=== PATIENT | male | born 1965 | race American Indian/Alaskan Native ===

== ENCOUNTER 2019-04-29 08:33 | Observation (INO) | payer SELFPAY ==
[2019-04-29] MEDS ORDERED: MORPHINE 4 MG/1 ML INJ IV ONE ×2 (09:56→12:46)
[2019-04-29] MEDS ORDERED: ONDANSETRON 4 MG/2 ML INJ IV ONE (09:56)
--- NOTE | 2019-04-29 09:59 | Emergency Department Report ---
ED Abdominal Pain HPI - General Chief Complaint: Abdominal Pain Stated Complaint: STOMACH PAIN Time Seen by Provider: 04/29/19 09:53 Source: patient Mode of arrival: Ambulatory Limitations: No Limitations - History of Present Illness Initial Comments: Patient is 53 years old male with no significant past medical history except for a hernia repair a few years back. Patient presented to the ER complaining of diffuse abdominal pain, sharp in nature with no radiation. Patient is nauseated but no vomiting. No diarrhea. No fever or chills. Normal bowel movement yesterday. Patient stated that he drink alcohol daily. Patient denied any hematemesis, hematochezia or melena. MD Complaint: abdominal pain -: days(s) (3) Location: diffuse Radiation: none Migration to: no migration Severity: severe Severity scale (0 -10): 7 Quality: sharp Consistency: constant - Related Data Allergies Allergy/AdvReac Type Severity Reaction Status Date / Time No Known Allergies Allergy Unverified 04/29/19 08:38 ED Review of Systems ROS: Stated complaint: STOMACH PAIN Other details as noted in HPI Comment: All other systems reviewed and negative Constitutional: denies: chills, fever Respiratory: denies: cough, shortness of breath, SOB with exertion, SOB at rest, wheezing Cardiovascular: denies: chest pain, palpitations Gastrointestinal: abdominal pain. denies: nausea, vomiting, diarrhea Musculoskeletal: denies: back pain Neurological: denies: headache, weakness, numbness, paresthesias, confusion ED Past Medical Hx - Past Medical History Previous Medical History?: No - Surgical History Past Surgical History?: No ED Physical Exam - General Limitations: No Limitations General appearance: alert, in no apparent distress - Head Head exam: Present: atraumatic, normocephalic, normal inspection - Eye Eye exam: Present: normal appearance - ENT ENT exam: Present: normal exam, normal orophraynx, mucous membranes moist - Neck Neck exam: Present: normal inspection, full ROM. Absent: tenderness, meningismus - Respiratory Respiratory exam: Present: normal lung sounds bilaterally - Cardiovascular Cardiovascular Exam: Present: regular rate, normal rhythm, normal heart sounds - GI/Abdominal GI/Abdominal exam: Present: soft, tenderness. Absent: distended, guarding, rebound, rigid, organomegaly, mass, bruit, pulsatile mass, hernia - Extremities Exam Extremities exam: Present: normal inspection, full ROM, normal capillary refill - Back Exam Back exam: Present: normal inspection, full ROM. Absent: tenderness, CVA tende rness (R), CVA tenderness (L), muscle spasm, paraspinal tenderness, vertebral tenderness - Neurological Exam Neurological exam: Present: alert, oriented X3, CN II-XII intact, normal gait, reflexes normal. Absent: motor sensory deficit - Skin Skin exam: Present: warm, intact, normal color ED Course Vital Signs 04/29/19 04/29/19 04/29/19 08:39 10:36 11:31 Temperature 98.1 F Pulse Rate 84 81 Respiratory 16 15 16 Rate Blood Pressure 142/82 Blood Pressure 119/77 [Left] O2 Sat by Pulse 99 98 Oximetry 04/29/19 12:46 Temperature Pulse Rate Respiratory 16 Rate Blood Pressure Blood Pressure [Left] O2 Sat by Pulse Oximetry ED Medical Decision Making - Lab Data Result diagrams: 04/29/19 10:14 04/29/19 10:14 - Radiology Data Radiology results: report reviewed - Medical Decision Making Patient is 53 years old male with no significant past medical history except for a hernia repair a few years back. Patient presented to the ER complaining of diffuse abdominal pain, sharp in nature with no radiation. Patient is nauseated but no vomiting. No diarrhea. No fever or chills. Normal bowel movement yesterday. Patient stated that he drink alcohol daily. Patient denied any hematemesis, hematochezia or melena. Patient received morphine twice and Dilaudid for pain control. Patient still complaining of pain. No vomiting observing the ER. Labs reviewed and showed e levated lipase level and also elevated liver enzymes. CT abdomen and pelvis with IV contrast showed evidence of pancreatitis and possibility of pancreatic mass. I discussed the patient with Gwen, nurse practitioner with Dr. Jasiel Hawkins from gastroenterology, agreed to be consulted on the patient. I discussed the patient with Dr. Benitez, he agreed to admit the patient to medical service for further management. Critical care attestation.: If time is entered above; I have spent that time in minutes in the direct care of this critically ill patient, excluding procedure time. ED Disposition Clinical Impression: Intractable epigastric abdominal pain, Acute pancreatitis, Pancreatic mass Disposition: OP ADMIT IP TO THIS HOSP Is pt being admited?: Yes Condition: Stable
[2019-04-29 10:42] LABS: Basophils % (Auto) 0.5 % (0.0-1.8); Eosinophils % (Auto) 0.7 % (0.0-4.3); Hematocrit 38.8 % (35.5-45.6); Hemoglobin 13.3 gm/dl (11.8-15.2); Lymphocytes % (Auto) 21.1 % (13.4-35.0); Mean Corpuscular HGB Conc 34 % (32-34); Mean Corpuscular Volume 106 fl (84-94); Monocytes # (Auto) 0.5 K/mm3 (0.0-0.8); Monocytes % (Auto) 11.1 % (0.0-7.3); Platelet Count 127 K/mm3 (140-440); Red Blood Count 3.66 M/mm3 (3.65-5.03); Red Cell Distribution Width 13.3 % (13.2-15.2)
[2019-04-29 11:15] LABS: Alanine Aminotransferase 165 units/L (7-56); Albumin 3.9 g/dL (3.9-5); BUN/Creatinine Ratio 8; Blood Urea Nitrogen 5 mg/dL (9-20); Calcium 9.2 mg/dL (8.4-10.2); Hemolysis Index 11
[2019-04-29 12:05] LABS: Bacteria,Urine 1+ /HPF (Negative); Bilirubin,Urine NEG (Negative); Blood,Urine SM (Negative); Color,Urine Amber (Yellow); Mucus,Urine 2+ /HPF
[2019-04-29] MEDS ORDERED: MORPHINE 2 MG/1 ML INJ ONE (12:49)
--- NOTE | 2019-04-29 14:46 | Cat Scan Report ---
CT abdomen pelvis w con INDICATION: abdominal pain. TECHNIQUE: All CT scans at this location are performed using the following dose modulation technique: Automated exposure control. CONTRAST: Omnipaque 350, 100 cc IV injection. COMPARISON: None available. CT ABDOMEN: Evaluation of the parenchymal organs demonstrates fatty infiltration the liver. There is dilatation of the pancreatic duct originating at the pancreatic head which measures 2.4 x 3.1 cm. Thi s is similar in density to adjacent pancreatic tissue. The remaining parenchymal organs are unremarka ble. Fluid/inflammation is seen in the region the pancreatic head and extending along the right retroperit oneum, gallbladder and undersurface of the liver. Negative for localized fluid collection. There is mild colonic distention which contains semisolid stool. Negative for wall thickening. CT PELVIS: Negative for mass, fluid collection or inflammation. IMPRESSION: 1. Right upper quadrant inflammatory process is likely on the basis of the pancreatitis. 2. Focal chronic pancreatitis versus mass at the pancreatic head with resultant ductal dilatation yoko suring 7 mm and partial pancreatic atrophy. 3. Large fatty liver. Signer Name: Michele Wu MD Signed: 04/29/2019 2:42 PM Workstation Name: [id number]
[2019-04-29] MEDS ORDERED: SODIUM CHLORIDE 0.9% 1000 ML 1,000 ML IV ONE (15:33)
[2019-04-29] MEDS ORDERED: HYDROmorphone 1 MG/1 ML INJ IV ONE (15:33)
[2019-04-29] MEDS ORDERED: HYDROmorphone 1 MG/1 ML INJ IV PRN (15:38)
[2019-04-29] MEDS ORDERED: ACETAMINOPHEN 325 MG TAB PO PRN (15:38)
[2019-04-29] MEDS ORDERED: ONDANSETRON 4 MG/2 ML INJ IV PRN (15:38)
[2019-04-29] MEDS ORDERED: ALBUTEROL 2.5 MG/3 ML NEBU IH PRN (15:38)
--- NOTE | 2019-04-29 15:41 | Gastroenterology Consultation ---
History of Present Illness - Reason for Consult Consult date: 04/29/19 pancreatic mass Requesting physician: VALERIA STEWART - History of Present Illness Patient is a 53 y/o male with PMH of ETOH abuse who presented to ED with c/o diffuse abdominal pain. Upon admission, lipase/LFTs was found to be elevated with abd CT revealing fatty liver, pancreatitis, and possible focal area of chronic pancreatitis vs mass at the pancreatic head to which GI has been consulted. This afternoon patient was resting on stretcher w/o acute distress. Noted to be agitated requesting something to eat and difficult to answer questions. Report a hx of pancreatitis ~ 5 years ago due to alcohol, which he continues to actively drink (on average 4 beers daily). Had N/V a couple of days ago that has now resolved. Denies fever, CP, SOB, signs of bleeding, jaundice, diarrhea, or constipation. No hx of cirrhosis. No known Fhx of pancreatic disease. Past History Past Medical History: other (alcohol dependency) Past Surgical History: hernia repair Social history: , alcohol abuse Medications and Allergies Allergies Allergy/AdvReac Type Severity Reaction Status Date / Time No Known Allergies Allergy Unverified 04/29/19 08:38 Active Meds: Active Medications Acetaminophen (Tylenol) 650 mg PO Q4H PRN PRN Reason: Pain MILD(1-3)/Fever >100.5/GUTIERREZ Albuterol (Proventil) 2.5 mg IH Q4HRT PRN PRN Reason: Shortness Of Breath Hydromorphone HCl (Dilaudid) 0.5 mg IV Q3H PRN PRN Reason: Pain , Severe (7-10) Sodium Chloride (Nacl 0.9% 1000 Ml) 1,000 mls @ 250 mls/hr IV ONCE ONE Stop: 04/29/19 19:32 Sodium Chloride (Nacl 0.9% 1000 Ml) 1,000 mls @ 125 mls/hr IV DIRECT IRLANDA Ondansetron HCl (Zofran) 4 mg IV Q8H PRN PRN Reason: Nausea And Vomiting Sodium Chloride (Sodium Chloride Flush Syringe 10 Ml) 10 ml IV BID IRLANDA Sodium Chloride (Sodium Chloride Flush Syringe 10 Ml) 10 ml IV PRN PRN PRN Reason: LINE FLUSH medications reviewed/updated as required Review of Systems - Review of Systems All systems: negative Gastrointestinal: abdominal pain Exam - Constitutional Vital Signs: Temp Pulse Resp BP Pulse Ox 98.1 F 81 16 119/77 98 04/29/19 08:39 04/29/19 11:31 04/29/19 12:46 04/29/19 11:31 04/29/19 11:31 General appearance: no acute distress - EENT Eyes: PERRL, EOM intact ENT: hearing intact - Respiratory Respiratory effort: normal Respiratory: bilateral: CTA - Cardiovascular Rhythm: regular - Gastrointestinal General gastrointestinal: Present: soft, tender (diffuse), non-distended, normal bowel sounds - Integumentary Integumentary: Present: warm, dry - Neurologic Neurological: alert and oriented x3 - Labs CBC & Chem 7: 04/29/19 10:14 04/29/19 10:14 Lab Results: Laboratory Results - last 24 hr 04/29/19 04/29/19 04/29/19 10:14 10:14 10:14 WBC 4.8 RBC 3.66 Hgb 13.3 Hct 38.8 MCV 106 H MCH 36 H MCHC 34 RDW 13.3 Plt Count 127 L Lymph % (Auto) 21.1 [place] % (Auto) 11.1 H Eos % (Auto) 0.7 Baso % (Auto) 0.5 Lymph # 1.0 L [place] # 0.5 Eos # 0.0 Baso # 0.0 Seg Neutrophils % 66.6 Seg Neutrophils # 3.2 Sodium 132 L Potassium 5.0 Chloride 93.3 L Carbon Dioxide 24 Anion Gap 20 BUN 5 L Creatinine 0.6 L Estimated GFR > 60 BUN/Creatinine Ratio 8 Glucose 129 H Calcium 9.2 Total Bilirubin 0.50 AST 201 H ALT 165 H Alkaline Phosphatase 98 Total Protein 7.3 Albumin 3.9 Albumin/Globulin Ratio 1.1 Lipase 480 H Urine Color Urine Turbidity Urine pH Ur Specific [place] Urine Protein Urine Glucose (UA) Urine Ketones Urine Blood Urine Nitrite Urine Bilirubin Urine Urobilinogen Ur Leukocyte Esterase Urine WBC (Auto) Urine RBC (Auto) U Epithel Cells (Auto) Urine Bacteria (Auto) Urine Mucus Plasma/Serum Alcohol 04/29/19 04/29/19 11:29 11:31 WBC RBC Hgb Hct MCV MCH MCHC RDW Plt Count Lymph % (Auto) [place] % (Auto) Eos % (Auto) Baso % (Auto) Lymph # [place] # Eos # Baso # Seg Neutrophils % Seg Neutrophils # Sodium Potassium Chloride Carbon Dioxide Anion Gap BUN Creatinine Estimated GFR BUN/Creatinine Ratio Glucose Calcium Total Bilirubin AST ALT Alkaline Phosphatase Total Protein Albumin Albumin/Globulin Ratio Lipase Urine Color Citlaly Urine Turbidity Clear Urine pH 5.0 Ur Specific [place] 1.023 Urine Protein 30 mg/dl Urine Glucose (UA) Neg Urine Ketones Neg Urine Blood Sm Urine Nitrite Neg Urine Bilirubin Neg Urine Urobilinogen 2.0 Ur Leukocyte Esterase Neg Urine WBC (Auto) 5.0 Urine RBC (Auto) 4.0 U Epithel Cells (Auto) 4.0 Urine Bacteria (Auto) 1+ Urine Mucus 2+ Plasma/Serum Alcohol < 0.01 Assessment and Plan 1.pancreatitis (acute on chronic) 2.abnormal CT (focal area of chronic pancreatitis vs mass?) 3.transaminitis 4.ETOH abuse -afebrile -WBC and H/H WNL -plt 127 -lipase 480 -LFTs- T.judi 0.50, AST 201, ALT 165, alk phos 98 -etiology-likely 2/2 ETOH vs other -tumor markers pending -will order MR/MRCP for further evaluation -diet as tolerated -alcohol cessation -continue to trend labs (INR in am) and supportive care with IVF, pain control, antiemetics, etc. -further recommendations to follow MR results
--- NOTE | 2019-04-29 15:56 | History and Physical Report ---
History of Present Illness Chief complaint: My stomach has been hurting History of present illness: 53-year-old male with alcohol dependence, alcoholic liver disease, chronic pancreatitis secondary to alcohol use presents to ED for evaluation. Patient states that he has experienced nausea, and multiple episodes of vomiting as well as abdominal discomfort over the past 3 days with persistent symptoms over the same timeframe. Patient states that his pain is 47/10, constant, diffuse, without exacerbating or alleviating factors. Patient acknowledges chronic daily alcohol use. Patient transported to [facility] via private vehicle for further care and evaluation. Patient seen and evaluated in the emergency department. Lab and imaging studies reviewed. Patient found to have symptoms consistent with acute/chronic alcohol pancreatitis. CT scan of the abdomen shows inflammation in the area of the pancreatic head. Patient acknowledges being told similar findings found on CT CAT scan approximately 3 to 5 years ago. GI consulted in ED. Patient placed in observation status and admitted to medical floor for medi zelda stabilization and supportive care. Patient denies fever, chills, chest pain, palpitations, hematemesis, bright red blood per rectum, unintentional weight loss, night sweats, shaking chills, skin jaundice, pruritus, or recent ill contacts. No prior admission for review. No medication listed at time of admission for reconciliation. Past History Past Medical History: other (See HPI) Past Surgical History: hernia repair Social history: single, alcohol abuse Family history: hypertension Medications and Allergies Allergies Allergy/AdvReac Type Severity Reaction Status Date / Time No Known Allergies Allergy Unverified 04/29/19 08:38 Active Meds: Active Medications Acetaminophen (Tylenol) 650 mg PO Q4H PRN PRN Reason: Pain MILD(1-3)/Fever >100.5/GUTIERREZ Albuterol (Proventil) 2.5 mg IH Q4HRT PRN PRN Reason: Shortness Of Breath Hydromorphone HCl (Dilaudid) 0.5 mg IV Q3H PRN PRN Reason: Pain , Severe (7-10) Sodium Chloride (Nacl 0.9% 1000 Ml) 1,000 mls @ 250 mls/hr IV ONCE ONE Stop: 04/29/19 19:32 Sodium Chloride (Nacl 0.9% 1000 Ml) 1,000 mls @ 125 mls/hr IV DIRECT IRLANDA Ondansetron HCl (Zofran) 4 mg IV Q8H PRN PRN Reason: Nausea And Vomiting Sodium Chloride (Sodium Chloride Flush Syringe 10 Ml) 10 ml IV BID IRLANDA Sodium Chloride (Sodium Chloride Flush Syringe 10 Ml) 10 ml IV PRN PRN PRN Reason: LINE FLUSH Review of Systems Constitutional: no weight loss, no weight gain, no fever, no chills Ears, nose, mouth and throat: no ear discharge, no tinnitis, no decreased hearing, no nasal congestion, no nasal discharge Cardiovascular: no chest pain, no palpitations, no rapid/irregular heart beat, no edema, no syncope Respiratory: no cough, no cough with sputum, no shortness of breath Gastrointestinal: abdominal pain, nausea, vomiting, no diarrhea, no constipation, no melena, no hematochezia, no early satiety, no jaundice Genitourinary Male: no hematuria, no flank pain, no urinary frequency, no urinary hesitancy Rectal: no pain, no incontinence, no bleeding Musculoskeletal: no neck stiffness, no neck pain, no shooting arm pain, no arm numbness/tingling, no low back pain, no shooting leg pain Integumentary: no rash, no pruritis, no redness, no wounds, no jaundice, no boils Neurological: no head injury, no transient paralysis, no paralysis, no parathesias, no numbness, no seizures Psychiatric: no anxiety, no memory loss, no sleep disturbances, no insomnia, no hypersomnia, no change in appetite, no disorientation Endocrine: no cold intolerance, no heat intolerance, no polyphagia, no polydipsia, no polyuria, no flushing, no weight change Hematologic/Lymphatic: no easy bruising, no easy bleeding, no lymphadenopathy, no lymphedema Allergic/Immunologic: no urticaria, no allergic rhinitis, no persistent infections, no anaphylaxis, no angioedema Exam - Constitutional Vitals: Temp Pulse Resp BP Pulse Ox 98.1 F 81 16 119/77 98 04/29/19 08:39 04/29/19 11:31 04/29/19 12:46 04/29/19 11:31 04/29/19 11:31 General appearance: Present: no acute distress - EENT Eyes: Present: PERRL ENT: hearing intact, clear oral mucosa - Neck Neck: Present: supple, normal ROM - Respiratory Respiratory effort: normal Respiratory: bilateral: CTA - Cardiovascular Heart Sounds: Present: S1 & S2. Absent: rub, click - Extremities Extremities: pulses symmetrical, No edema Peripheral Pulses: within normal limits - Abdominal General gastrointestinal: Present: soft, tender, non-distended, normal bowel sounds. Absent: hepatomegaly, splenomegaly, mass, hernia Localized gastrointestinal: tender: diffuse Male genitourinary: Present: normal - Integumentary Integumentary: Present: clear, warm, dry - Musculoskeletal Musculoskeletal: gait normal, strength equal bilaterally - Psychiatric Psychiatric: appropriate mood/affect, intact judgment & insight - Neurologic Neurologic: CNII-XII intact, moves all extremities Results - Labs CBC & Chem 7: 04/29/19 10:14 04/29/19 10:14 Labs: Abnormal lab results 04/29/19 04/29/19 04/29/19 Range/Units 10:14 10:14 10:14 MCV 106 H (84-94) fl MCH 36 H (28-32) pg Plt Count 127 L (140-440) K/mm3 [place] % (Auto) 11.1 H (0.0-7.3) % Lymph # 1.0 L (1.2-5.4) K/mm3 Sodium 132 L (137-145) mmol/L Chloride 93.3 L (98-107) mmol/L BUN 5 L (9-20) mg/dL Creatinine 0.6 L (0.8-1.5) mg/dL Glucose 129 H (75-100) mg/dL AST 201 H (5-40) units/L ALT 165 H (7-56) units/L Lipase 480 H (13-60) units/L Assessment and Plan - Patient Problems (1) Chronic alcoholic pancreatitis Current Visit: Yes Status: Acute Plan to address problem: IV fluid resuscitation therapy, alcohol cessation, outpatient follow-up with Alcoholics Anonymous at time of discharge, supportive care, thiamine, folic acid, multivitamin daily. (2) Alcohol dependence Current Visit: Yes Status: Acute Qualifiers: Substance use status: uncomplicated Qualified Code(s): F10.20 - Alcohol dependence, uncomplicated Plan to address problem: Thiamine, folic acid, multivitamin, supportive care, (3) Alcoholic liver disease Current Visit: Yes Status: Acute Plan to address problem: LFT, alcohol cessation, outpatient GI follow-up. (4) Pancreatic mass Current Visit: Yes Status: Acute Plan to address problem: Supportive care, CEA, CA-19-9. GI consulted in ED. (5) Hyponatremia Current Visit: Yes Status: Acute Plan to address problem: BMP, IV fluid resuscitation therapy, repeat BMP in a.m. (6) DVT prophylaxis Current Visit: Yes Status: Acute Plan to address problem: SCD to bilateral lower extremities while in bed, patient is ambulatory.
[2019-04-29] MEDS ORDERED: diphenhydrAMINE 50 MG/ML VIAL IV ONE (17:13)
[2019-04-29] MEDS ORDERED: diphenhydrAMINE 50 MG/ML VIAL ONE (17:21)
[2019-04-29] MEDS: SODIUM CHLORIDE 0.9% 1000 ML 1,000 ML IV SCH (18:13)
[2019-04-29] MEDS: MORPHINE 2 MG/1 ML INJ IV PRN ×2 (18:39→23:39)
[2019-04-29] MEDS: diphenhydrAMINE 25 MG CAP PO PRN (23:39)
[2019-04-30] MEDS: SODIUM CHLORIDE 0.9% 1000 ML 1,000 ML IV SCH ×2 (02:00→09:09)
[2019-04-30 05:06] LABS: Basophils % (Auto) 0.6 % (0.0-1.8); Eosinophils # (Auto) 0.1 K/mm3 (0.0-0.4); Eosinophils % (Auto) 2.6 % (0.0-4.3); Hematocrit 32.2 % (35.5-45.6); Hemoglobin 11.2 gm/dl (11.8-15.2); Lymphocytes % (Auto) 27.5 % (13.4-35.0); Mean Corpuscular HGB Conc 35 % (32-34); Mean Corpuscular Volume 106 fl (84-94); Monocytes # (Auto) 0.5 K/mm3 (0.0-0.8); Monocytes % (Auto) 12.4 % (0.0-7.3); Platelet Count 133 K/mm3 (140-440); Red Blood Count 3.04 M/mm3 (3.65-5.03); Red Cell Distribution Width 12.9 % (13.2-15.2)
[2019-04-30] MEDS: diphenhydrAMINE 25 MG CAP PO PRN ×2 (05:08→14:44)
[2019-04-30] MEDS: MORPHINE 2 MG/1 ML INJ IV PRN ×3 (05:08→14:44)
[2019-04-30 05:15] LABS: INR 1.04 (0.87-1.13)
[2019-04-30 05:26] LABS: Alanine Aminotransferase 106 units/L (7-56); Albumin 3.3 g/dL (3.9-5); BUN/Creatinine Ratio 10; Blood Urea Nitrogen 6 mg/dL (9-20); Calcium 8.1 mg/dL (8.4-10.2); Hemolysis Index 0
[2019-04-30 05:33] LABS: Bilirubin,Direct < 0.2 mg/dL (0-0.2)
--- NOTE | 2019-04-30 10:16 | Gastroenterology Progress Note ---
Assessment and Plan 1.pancreatitis (acute on chronic) 2.abnormal CT (focal area of chronic pancreatitis vs mass?) 3.transaminitis 4.ETOH abuse -afebrile -WBC WNL -H/H 11.2/32.2-no signs of bleeding -plt 133, INR WNL -lipase 220-trending down -LFTs trending down- T.judi 0.40, AST 103, ALT 106, alk phos 77 -etiology-likely 2/2 ETOH vs other -tumor markers pending -MR/MRCP for further evaluation pending for today -clinically, patient is stable. Reports feeling better with abd pain improving. No vomiting. Tolerating diet. -alcohol cessation discussed/encouraged with patient -continue to trend labs and supportive care with IVF, pain control, antiemetics, etc. -if MR negative for obstruction, patient okay to be d/c per GI standpoint with f/u in clinic in ~2 weeks for further workup/management (likely will need EUS as outpatient) Subjective Date of service: 04/30/19 Principal diagnosis: pancreatic mass Interval history: Patient sitting up in bed this am w/o acute distress and family at bedside. Reports feeling better with abd pain improving. No vomiting. Tolerating diet. Objective - Constitutional Vitals: Temp Pulse Resp BP Pulse Ox 98.3 F 78 18 108/60 97 04/30/19 04:30 04/30/19 04:30 04/30/19 05:08 04/30/19 04:30 04/30/19 07:55 General appearance: no acute distress - EENT Eyes: PERRL, EOM intact ENT: hearing intact - Respiratory Respiratory effort: normal - Cardiovascular Rhythm: regular - Gastrointestinal General gastrointestinal: Present: soft, tender (slight), non-distended, normal bowel sounds - Integumentary Integumentary: Present: warm, dry - Neurologic Neurological: alert and oriented x3 - Labs CBC & Chem 7: 04/30/19 04:37 04/30/19 04:37 Labs: Laboratory Results - last 24 hr 04/29/19 04/29/19 04/29/19 10:14 10:14 10:14 WBC 4.8 RBC 3.66 Hgb 13.3 Hct 38.8 MCV 106 H MCH 36 H MCHC 34 RDW 13.3 Plt Count 127 L Lymph % (Auto) 21.1 [place] % (Auto) 11.1 H Eos % (Auto) 0.7 Baso % (Auto) 0.5 Lymph # 1.0 L [place] # 0.5 Eos # 0.0 Baso # 0.0 Seg Neutrophils % 66.6 Seg Neutrophils # 3.2 PT INR Sodium 132 L Potassium 5.0 Chloride 93.3 L Carbon Dioxide 24 Anion Gap 20 BUN 5 L Creatinine 0.6 L Estimated GFR > 60 BUN/Creatinine Ratio 8 Glucose 129 H Calcium 9.2 Total Bilirubin 0.50 Direct Bilirubin Indirect Bilirubin AST 201 H ALT 165 H Alkaline Phosphatase 98 Total Protein 7.3 Albumin 3.9 Albumin/Globulin Ratio 1.1 Lipase 480 H Urine Color Urine Turbidity Urine pH Ur Specific [place] Urine Protein Urine Glucose (UA) Urine Ketones Urine Blood Urine Nitrite Urine Bilirubin Urine Urobilinogen Ur Leukocyte Esterase Urine WBC (Auto) Urine RBC (Auto) U Epithel Cells (Auto) Urine Bacteria (Auto) Urine Mucus Plasma/Serum Alcohol 04/29/19 04/29/19 04/30/19 11:29 11:31 04:37 WBC RBC Hgb Hct MCV MCH MCHC RDW Plt Count Lymph % (Auto) [place] % (Auto) Eos % (Auto) Baso % (Auto) Lymph # [place] # Eos # Baso # Seg Neutrophils % Seg Neutrophils # PT INR Sodium 131 L Potassium 4.4 Chloride 95.9 L Carbon Dioxide 25 Anion Gap 15 BUN 6 L Creatinine 0.6 L Estimated GFR > 60 BUN/Creatinine Ratio 10 Glucose 90 Calcium 8.1 L Total Bilirubin 0.40 Direct Bilirubin < 0.2 Indirect Bilirubin 0.2 AST 103 H ALT 106 H Alkaline Phosphatase 77 Total Protein 5.9 L Albumin 3.3 L Albumin/Globulin Ratio 1.3 Lipase 220 H Urine Color Citlaly Urine Turbidity Clear Urine pH 5.0 Ur Specific [place] 1.023 Urine Protein 30 mg/dl Urine Glucose (UA) Neg Urine Ketones Neg Urine Blood Sm Urine Nitrite Neg Urine Bilirubin Neg Urine Urobilinogen 2.0 Ur Leukocyte Esterase Neg Urine WBC (Auto) 5.0 Urine RBC (Auto) 4.0 U Epithel Cells (Auto) 4.0 Urine Bacteria (Auto) 1+ Urine Mucus 2+ Plasma/Serum Alcohol < 0.01 04/30/19 04/30/19 04:37 04:37 WBC 3.8 L RBC 3.04 L Hgb 11.2 L Hct 32.2 L D MCV 106 H MCH 37 H MCHC 35 H RDW 12.9 L Plt Count 133 L Lymph % (Auto) 27.5 [place] % (Auto) 12.4 H Eos % (Auto) 2.6 Baso % (Auto) 0.6 Lymph # 1.0 L [place] # 0.5 Eos # 0.1 Baso # 0.0 Seg Neutrophils % 56.9 Seg Neutrophils # 2.2 PT 13.7 INR 1.04 Sodium Potassium Chloride Carbon Dioxide Anion Gap BUN Creatinine Estimated GFR BUN/Creatinine Ratio Glucose Calcium Total Bilirubin Direct Bilirubin Indirect Bilirubin AST ALT Alkaline Phosphatase Total Protein Albumin Albumin/Globulin Ratio Lipase Urine Color Urine Turbidity Urine pH Ur Specific [place] Urine Protein Urine Glucose (UA) Urine Ketones Urine Blood Urine Nitrite Urine Bilirubin Urine Urobilinogen Ur Leukocyte Esterase Urine WBC (Auto) Urine RBC (Auto) U Epithel Cells (Auto) Urine Bacteria (Auto) Urine Mucus Plasma/Serum Alcohol
--- NOTE | 2019-04-30 13:00 | Magnetic Resonance Report ---
MRI abdomen with and without contrast HISTORY: abnormal CT/pancreatitis/mass. TECHNIQUE: 15 mL of MultiHance was given intravenously. COMPARISON: CT abdomen/pelvis from yesterday FINDINGS: There is patchy bibasilar airspace disease with no effusion. Degenerative changes are pres ent in the spine with nothing acute. ABDOMEN: There is a 1 cm rounded mass in the pancreatic head which appears to communicate with the pa ncreatic duct as seen on images 52-58 of series #12. The pancreatic duct and CBD are abnormally dilat ed leading up to this rounded mass. There appears to be mild overall pancreatic atrophy as well. Ther e is also mild inflammatory stranding about the pancreas suggesting pancreatitis. The gallbladder, spleen, adrenals, kidneys, and visualized GI tract appear unremarkable. There is hep atic steatosis. IMPRESSION: 1. 1 cm rounded mass in the pancreatic head immediately adjacent to the region where the dilated panc reatic and CBD terminate. Given the apparent communication with the pancreatic duct and similar appea flaco, a sidebranch IPMN is in the differential. Recommend follow-up endoscopic ultrasound/ERCP for f urther evaluation. 2. Mild pancreatitis. Signer Name: Sherwin Nails MD Signed: 04/30/2019 12:55 PM Workstation Name: [id number]
--- NOTE | 2019-04-30 15:00 | Discharge Summary ---
Providers - Providers Date of Admission: 04/29/19 15:38 Date of discharge: 04/30/19 Attending physician: MAGALY SANDHU 04/29/19 15:39 Consult to Physician [CONS] Stat Comment: I discussed the patient with SAGAR Hidalgo Consulting Provider: ALANA ANDERSON Physician Instructions: Reason For Exam: pancreatic mass, abdominal pain Primary care physician: HOTEL OR MOTEL RECEPTIONIST Hospitalization Condition: Stable Hospital course: Patient is a 53-year-old man with alcohol abuse, alcoholic liver disease and chronic pancreatitis secondary to alcohol use who presents to [facility] ED with n/v/abd pains. He was treated with bowel rest and now he tolerated a diet. GI has cleared to go home. He needs outpatient EUS * MRI abd with and without contrast IMPRESSION: 1. 1 cm rounded mass in the pancreatic head immediately adjacent to the region where the dilated pancreatic and CBD terminate. Given the apparent communication with the pancreatic duct and similar appearance, a sidebranch IPMN is in the differential. Recommend follow-up endoscopic ultrasound/ERCP for further evaluation. 2. Mild pancreatitis. (1) Acute on Chronic alcoholic pancreatitis Current Visit: Yes Status: Acute Plan to address problem: IV fluid resuscitation therapy, alcohol cessation, outpatient follow-up with Alcoholics Anonymous at time of discharge, supportive care, thiamine, folic acid, multivitamin daily. (2) Alcohol dependence Current Visit: Yes Status: Acute Qualifiers: Substance use status: uncomplicated Qualified Code(s): F10.20 - Alcohol dependence, uncomplicated Plan to address problem: Thiamine, folic acid, multivitamin, supportive care, (3) Alcoholic liver disease Current Visit: Yes Status: Acute Plan to address problem: LFT, alcohol cessation, outpatient GI follow-up. (4) Pancreatic mass Current Visit: Yes Status: Acute Plan to address problem: outpatient EUS with GI (5) Hyponatremia Current Visit: Yes Status: Acute Plan to address problem: BMP, IV fluid resuscitation therapy, repeat BMP in a.m. (6) DVT prophylaxis Current Visit: Yes Status: Acute Plan to address problem: SCD to bilateral lower extremities while in bed, patient is ambulatory. Disposition: TO HOME OR SELFCARE Time spent for discharge: 33 minutes Core Measure Documentation - Palliative Care Palliative Care/ Comfort Measures: Not Applicable - Core Measures Any of the following diagnoses?: none - VTE Discharge Requirements Deep Vein Thrombosis/Pulmonary Embolism Present on Admission: No Has pt received <5 days of overlap therapy or INR<2.0: No Anticoagulant overlap therapy prescribed at discharge: No Contraindication No Overlap Therapy order at DC: Not Indicated Exam - Physical Exam Narrative exam: Gen: malnourish, cachetic appearing, bmi 17, nad a/o x 3 HEENT: confucianist muscle wasting, NCAT, EOMI, PERRL, OP Clear Neck: supple, no adenopathy, no thyromegaly, no JVD CVS/Heart: RRR, normal S1S2, pulses present bilaterally Chest/Lungs: CTA B, Symmetrical chest expansion, good air entry bilaterally GI/Abdomen: soft, nondistended, mild epigastric tenderness, but good bowel sounds, no guarding or rebound /Bladder: no suprapubic tenderness, no CVA or paraspinal tenderness Extermity/Skin: no c/c/e, no obvious rash MSK: FROM x 4 Neuro: CN 2-12 grossly intact, no new focal deficits Psych: calm - Constitutional Vitals: Temp Pulse Resp BP Pulse Ox 98.3 F 78 18 108/60 97 04/30/19 04:30 04/30/19 04:30 04/30/19 05:08 04/30/19 04:30 04/30/19 07:55 Plan Activity: other (no strenous acitivity unless cleared by GI) Diet: clear liquids, advance as tolerated Additional Instructions: You have a PANCREATIC MASS that needs continous follow up with [facility] aka GI [facility] aka Gastroenterology doctors. YOU need an Endoscopic Ultrasound (EUS), see the GI doctors to schedule Follow up with: LIANNA LOPEZ MD [Primary Care Provider] - 3-5 Days ALANA ANDERSON MD [Staff Physician] - 7 Days Prescriptions: Folic Acid [Folvite] 1 mg PO QDAY #30 tablet oxyCODONE [roxiCODONE] 5 mg PO Q6HR PRN #15 tablet PRN Reason: Pain , Severe (7-10) Thiamine [Vitamin B-1] 100 mg PO QDAY #30 tablet Ondansetron [Zofran Odt] 4 mg PO Q8HR #15 tab.rapdis
[2019-04-30 15:03] VITALS: BP 141/82
== END 2019-04-30 16:35 | disposition home or self-care (01) ==
LOC: ED 08:33 → 3A 15:38
PROVIDERS: ADMIT Internal Medicine; ATTEND Internal Medicine
DX: K86.0 Alcohol-induced chronic pancreatitis (principal); F10.20 Alcohol dependence, uncomplicated; K70.9 Alcoholic liver disease, unspecified; E87.1 Hypo-osmolality and hyponatremia; K86.9 Disease of pancreas, unspecified; Z98.890 Other specified postprocedural states
CPT/HCPCS: 36415; 74177; 74183; 80048; 80053; 80076; 81001; 82378; 83690; 85025; 85610; 86301; 96374; 96375; 96376; 99284; A9577; G0378; J1170; J1200; J2270; J2405; J7030; Q9967; 80320; G0480

== ENCOUNTER 2020-02-12 06:35 | Emergency (ER) | payer SELFPAY ==
[2020-02-12 08:23] LABS: Hematocrit 40.6 % (35.5-45.6); Mean Corpuscular HGB Conc 34 % (32-34); Platelet Count 142 K/mm3 (140-440); Red Blood Count 3.69 M/mm3 (3.65-5.03); Red Cell Distribution Width 14.8 % (13.2-15.2)
[2020-02-12 08:59] LABS: Mean Corpuscular Volume 110 fl (84-94)
[2020-02-12 09:05] LABS: Alanine Aminotransferase 69 units/L (7-56); Albumin 4.1 g/dL (3.9-5); BUN/Creatinine Ratio 14; Blood Urea Nitrogen 11 mg/dL (9-20); Calcium 8.5 mg/dL (8.4-10.2); Hemolysis Index 14
[2020-02-12] MEDS ORDERED: ONDANSETRON 4 MG/2 ML INJ IV ONE (09:37)
[2020-02-12] MEDS ORDERED: fentaNYL 100 MCG/2 ML INJ IV ONE (09:37)
[2020-02-12] MEDS ORDERED: PANTOPRAZOLE 40 MG INJ IV ONE (09:37)
[2020-02-12] MEDS ORDERED: SODIUM CHLORIDE 0.9% 1000 ML 1,000 ML IV ONE (09:37)
[2020-02-12 09:58] LABS: Macrocytosis 1+; Total Cells Counted 100
[2020-02-12 09:59] LABS: Platelet Estimate Consistent w Auto
--- NOTE | 2020-02-12 10:00 | Emergency Department Report ---
ED Abdominal Pain HPI - General Chief Complaint: Abdominal Pain Stated Complaint: NAUSEA, VOMITING Time Seen by Provider: 02/12/20 09:11 Source: patient Mode of arrival: Ambulatory Limitations: No Limitations - History of Present Illness Initial Comments: Patient is a 54-year-old male presents emergency room with complaints of epigastric abdominal pain that began 5 days ago. He has associated nausea vomiting. He states he is having approximately 2 episodes of vomiting a day. He states he had a normal bowel movement yesterday. He denies any diarrhea, hematochezia, hematemesis, melena, urinary symptoms. He has a past medical history of pancreatitis. No allergies to medications. He has a current every day smoker and drinker. He states that he did drink beer yesterday. Severity scale (0 -10): 8 - Related Data Previous Rx's Medication Instructions Recorded Last Taken Type Folic Acid [Folvite] 1 mg PO QDAY #30 tablet 04/30/19 Unknown Rx Ondansetron [Zofran Odt] 4 mg PO Q8HR #15 tab.iqra 04/30/19 Unknown Rx Thiamine [Vitamin B-1] 100 mg PO QDAY #30 tablet 04/30/19 Unknown Rx oxyCODONE [roxiCODONE] 5 mg PO Q6HR PRN #15 tablet 04/30/19 Unknown Rx Omeprazole 20 mg PO DAILY #30 tablet. 02/12/20 Unknown Rx Ondansetron [Zofran Odt] 4 mg PO Q8HR PRN #7 tab.rapdis 02/12/20 Unknown Rx traMADoL [Ultram 50 MG tab] 50 mg PO Q6HR PRN #10 tablet 02/12/20 Unknown Rx Allergies Allergy/AdvReac Type Severity Reaction Status Date / Time No Known Allergies Allergy Unverified 04/29/19 08:38 ED Review of Systems ROS: Stated complaint: NAUSEA, VOMITING Other details as noted in HPI Comment: All other systems reviewed and negative ED Past Medical Hx - Past Medical History Previous Medical History?: Yes Additional medical history: Pancreatitis - Surgical History Past Surgical History?: Yes Additional Surgical History: Hernia repair - Social History Smoking Status: Current Every Day Smoker - Medications Home Medications: Home Medications Medication Instructions Recorded Confirmed Last Taken Type Folic Acid [Folvite] 1 mg PO QDAY #30 tablet 04/30/19 Unknown Rx Ondansetron [Zofran Odt] 4 mg PO Q8HR #15 tab.rapdis 04/30/19 Unknown Rx Thiamine [Vitamin B-1] 100 mg PO QDAY #30 tablet 04/30/19 Unknown Rx oxyCODONE [roxiCODONE] 5 mg PO Q6HR PRN #15 tablet 04/30/19 Unknown Rx Omeprazole 20 mg PO DAILY #30 tablet. 02/12/20 Unknown Rx Ondansetron [Zofran Odt] 4 mg PO Q8HR PRN #7 tab.rapdis 02/12/20 Unknown Rx traMADoL [Ultram 50 MG tab] 50 mg PO Q6HR PRN #10 tablet 02/12/20 Unknown Rx ED Physical Exam - General Limitations: No Limitations General appearance: alert, in no apparent distress, cachectic - Head Head exam: Present: atraumatic, normocephalic - Eye Eye exam: Present: normal appearance - ENT ENT exam: Present: mucous membranes moist - Respiratory Respiratory exam: Present: normal lung sounds bilaterally. Absent: respiratory distress, wheezes, rales, rhonchi, stridor, chest wall tenderness, accessory muscle use, decreased breath sounds, prolonged expiratory - Cardiovascular Cardiovascular Exam: Present: regular rate, normal rhythm, normal heart sounds. Absent: systolic murmur, diastolic murmur, rubs, gallop - GI/Abdominal GI/Abdominal exam: Present: soft, tenderness (epigastric), normal bowel sounds. Absent: distended, guarding, rebound, rigid - Neurological Exam Neurological exam: Present: alert, oriented X3 - Psychiatric Psychiatric exam: Present: normal affect, normal mood - Skin Skin exam: Present: warm, dry, intact ED Course Vital Signs 02/12/20 02/12/20 07:47 13:26 Temperature 97 F L Pulse Rate 68 66 Respiratory 18 16 Rate Blood Pressure 146/91 [Left] O2 Sat by Pulse 100 100 Oximetry ED Medical Decision Making - Lab Data Result diagrams: 02/12/20 07:51 02/12/20 07:51 Lab Results 02/12/20 02/12/20 02/12/20 Range/Units 07:51 07:51 09:10 WBC 3.6 L (4.5-11.0) K/mm3 RBC 3.69 (3.65-5.03) M/mm3 Hgb 14.0 (11.8-15.2) gm/dl Hct 40.6 (35.5-45.6) % MCV 110 H (84-94) fl MCH 38 H (28-32) pg MCHC 34 (32-34) % RDW 14.8 (13.2-15.2) % Plt Count 142 (140-440) K/mm3 Add Manual Diff Complete Total Counted 100 Seg Neutrophils % [employer] Seg Neuts % (Manual) 39.0 L (40.0-70.0) % Band Neutrophils % 0 % Lymphocytes % (Manual) 56.0 H (13.4-35.0) % Reactive Lymphs % (Man) 0 % Monocytes % (Manual) 3.0 (0.0-7.3) % Eosinophils % (Manual) 1.0 (0.0-4.3) % Basophils % (Manual) 1.0 (0.0-1.8) % Metamyelocytes % 0 % Myelocytes % 0 % Promyelocytes % 0 % Blast Cells % 0 % Nucleated RBC % Not Reportable Seg Neutrophils # Man 1.4 L (1.8-7.7) K/mm3 Band Neutrophils # 0.0 K/mm3 Lymphocytes # (Manual) 2.0 (1.2-5.4) K/mm3 Abs React Lymphs (Man) 0.0 K/mm3 Monocytes # (Manual) 0.1 (0.0-0.8) K/mm3 Eosinophils # (Manual) 0.0 (0.0-0.4) K/mm3 Basophils # (Manual) 0.0 (0.0-0.1) K/mm3 Metamyelocytes # 0.0 K/mm3 Myelocytes # 0.0 K/mm3 Promyelocytes # 0.0 K/mm3 Blast Cells # 0.0 K/mm3 WBC Morphology Not Reportable Hypersegmented Neuts Not Reportable Hyposegmented Neuts Not Reportable Hypogranular Neuts Not Reportable Smudge Cells Not Reportable Toxic Granulation Not Reportable Toxic Vacuolation Not Reportable Dohle Bodies Not Reportable Pelger-Huet Anomaly Not Reportable Meghan Rods Not Reportable Platelet Estimate Consistent w auto Clumped Platelets Not Reportable Plt Clumps, EDTA Not Reportable Large Platelets Not Reportable Giant Platelets Not Reportable Platelet Satelliting Not Reportable Plt Morphology Comment Not Reportable RBC Morphology Not Reportable Dimorphic RBCs Not Reportable Polychromasia Not Reportable Hypochromasia Not Reportable Poikilocytosis Not Reportable Anisocytosis Not Reportable Microcytosis Not Reportable Macrocytosis 1+ Spherocytes Not Reportable Pappenheimer Bodies Not Reportable Sickle Cells Not Reportable Target Cells Not Reportable Tear Drop Cells Not Reportable Ovalocytes Not Reportable Helmet Cells Not Reportable [place] Bodies Not Reportable [place] Rings Not Reportable Huddy Cells Not Reportable Bite Cells Not Reportable Crenated Cell Not Reportable Elliptocytes Not Reportable Acanthocytes (Spur) Not Reportable Rouleaux Not Reportable Hemoglobin C Crystals Not Reportable Schistocytes Not Reportable Malaria parasites Not Reportable Corey Bodies Not Reportable Hem Pathologist Commnt No Sodium 133 L (137-145) mmol/L Potassium 3.9 (3.6-5.0) mmol/L Chloride 94.4 L (98-107) mmol/L Carbon Dioxide 24 (22-30) mmol/L Anion Gap 19 mmol/L BUN 11 (9-20) mg/dL Creatinine 0.8 (0.8-1.3) mg/dL Estimated GFR > 60 ml/min BUN/Creatinine Ratio 14 % Glucose 178 H (75-100) mg/dL Calcium 8.5 (8.4-10.2) mg/dL Total Bilirubin 0.60 (0.1-1.2) mg/dL AST 163 H (5-40) units/L ALT 69 H (7-56) units/L Alkaline Phosphatase 67 (35-129) units/L Total Protein 7.2 (6.3-8.2) g/dL Albumin 4.1 (3.9-5) g/dL Albumin/Globulin Ratio 1.3 % Lipase 175 H (13-60) units/L Urine Color Citlaly (Yellow) Urine Turbidity Clear (Clear) Urine pH 6.0 (5.0-7.0) Ur Specific Tripp 1.024 (1.003-1.030) Urine Protein 30 mg/dl (Negative) mg/dL Urine Glucose (UA) Neg (Negative) mg/dL Urine Ketones Neg (Negative) mg/dL Urine Blood Neg (Negative) Urine Nitrite Neg (Negative) Urine Bilirubin Neg (Negative) Urine Urobilinogen 4.0 (<2.0) mg/dL Ur Leukocyte Esterase Neg (Negative) Urine WBC (Auto) 1.0 (0.0-6.0) /HPF Urine RBC (Auto) 1.0 (0.0-6.0) /HPF U Epithel Cells (Auto) < 1.0 (0-13.0) /HPF Urine Bacteria (Auto) 1+ (Negative) /HPF Urine Mucus 3+ /HPF - Radiology Data Radiology results: report reviewed CT ABDOMEN AND PELVIS WITH CONTRAST INDICATION / CLINICAL INFORMATION: upper abd pain, n/v, mildly elevated LFTs. TECHNIQUE: Axial CT images were obtained through the abdomen and pelvis after 100 cc Omnipaque [address] scans at this location are performed using CT dose reduction for ALARA by means of automated exposure control. COMPARISON: CT abdomen and pelvis with contrast from 04/29/2019. FINDINGS: LOWER CHEST: A 5.5 mm noncalcified solid nodule is seen anteriorly along the left lower lobe abutting the fissure on image 1 of series 2. No other significant abnormality. LIVER: There is generalized steatosis without other significant abnormalities. GALLBLADDER: No significant abnormality. BILE DUCTS: No significant abnormality. PANCREAS: Previously seen findings of pancreatitis have improved. Mild peripancreatic inflammation and a small amount of free fluid remain. Previously described fullness and heterogeneity along the pancreatic head/uncinate process has improved. No distinct mass is identified. There is stable dilatation of the pancreatic duct without a distinct intraductal lesion. SPLEEN: No significant abnormality. ADRENALS: No significant abnormality. RIGHT KIDNEY / URETER: No significant abnormality. LEFT KIDNEY / URETER: No significant abnormality. STOMACH / SMALL BOWEL: There is new moderate thickening of the gastric antrum without significant surrounding inflammation or a distinct mass. Secondary moderate to severe narrowing of the gastric lumen is noted at the level of the changes on images 78 through 91 of series 2. No significant abnormality of the small bowel. COLON: There is generalized diverticulosis without evidence of diverticulitis or other significant abnormalities. APPENDIX: No significant abnormality. PERITONEUM: No free fluid. No free air. No fluid collection. LYMPH NODES: No significant adenopathy. AORTA / ARTERIES: No significant abnormality. IVC / VEINS: No significant abnormality. URINARY BLADDER: No significant abnormality. REPRODUCTIVE ORGANS: No significant abnormality. ADDITIONAL FINDINGS: None. SKELETAL SYSTEM: No acute abnormality or significant interval changes. IMPRESSION: 1. Improvement of the previously seen pancreatitis. 2. New moderate thickening of the distal stomach that is of uncertain etiology. Considerations include infectious and inflammatory processes and less likely neoplasm. Endoscopy may be helpful for further evaluation. 3. 5.5 mm incidental left lower lobe nodule. If the patient has pertinent risk factors for malignancy, a follow-up CT of the chest without contrast and 1 year is recommended. Otherwise, no follow-up imaging is indicated. 4. Additional findings as above. Signer Name: Vimal Delgadillo MD Signed: 02/12/2020 12:41 PM Workstation Name: [id number] Transcribed By: FRANCESCO Dictated By: Vimal Delgadillo MD Electronically Authenticated By: Vimal Delgadillo MD Signed Date/Time: 02/12/20 1241 DD/ 1231 TD/TT: - Medical Decision Making Patient is a 54-year-old male presents emergency room with complaints of epigastric abdominal pain that began 5 days ago. He has associated nausea vomiting. He states he is having approximately 2 episodes of vomiting a day. He states he had a normal bowel movement yesterday. He denies any diarrhea, hematochezia, hematemesis, melena, urinary symptoms. He has a past medical history of pancreatitis. No allergies to medications. He has a current every day smoker and drinker. He states that he did drink beer yesterday. VSS. on exam: Epigastric abdominal tenderness palpation, no guarding, no rebound, no rigidity, normal bowel sounds, no peritoneal signs. Labs are stable from previous, mild elevation in ALT, AST, lipase. CT abdomen pelvis with IV contrast: 1. Improvement of the previously seen pancreatitis. 2. New moderate thickening of the distal stomach that is of uncertain etiology. Considerations include infectious and inflammatory processes and less likely neoplasm. Endoscopy may be helpful for further evaluation. 3. 5.5 mm incidental left lower lobe nodule. If the patient has pertinent risk factors for malignancy, a follow-up CT of the chest without contrast and 1 year is recommended. Otherwise, no follow-up imaging is indicated. 4. Additional findings as above. Discussed all findings with Dr. Joel Whelan, ER attending who advised outpatient GI follow- up, differential for pts CT findings could likely be from alcoholic gastritis given patient is still a current everyday drinker. Discussed all findings with patient and answered questions and discussed the importance of follow up. Patient given medication while in the emergency department and symptoms significantly improved and he was feeling much better ready to go home and was tolerating p.o. intake without difficulty. Discussed alcohol cessation with patient. Discussed GI referral with patient. Patient given prescription for omeprazole, Zofran, tramadol. Advised patient Please take medication as prescribed. Do not drive or operate machinery while taking pain medication. Increase your water intake. Please completely stop your alcohol use over time. Follow-up with your primary care doctor. Follow-up with a GI doctor. please take CT report with you. Return to emergency room for any new or worsening symptoms. - Differential Diagnosis Pancreatitis, mass, obstruction, PUD, alcoholic gastritis, cholecystitis Critical care attestation.: If time is entered above; I have spent that time in minutes in the direct care of this critically ill patient, excluding procedure time. ED Disposition Clinical Impression: Alcohol abuse, Gastric wall thickening, Elevated LFTs, Lung nodule Abdominal pain Qualifiers: Abdominal location: epigastric Qualified Code(s): R10.13 - Epigastric pain Nausea & vomiting Qualifiers: Vomiting type: unspecified Vomiting Intractability: non-intractable Qualified Code(s): R11.2 - Nausea with vomiting, unspecified Disposition: DC-01 TO HOME OR SELFCARE Is pt being admited?: No Does the pt Need Aspirin: No Condition: Stable Instructions: Alcohol Use Disorder, Gastritis, Adult Additional Instructions: Please take medication as prescribed. Do not drive or operate machinery while taking pain medication. Increase your water intake. Please completely stop y our alcohol use over time. Follow-up with your primary care doctor. Follow-up with a GI doctor. please take CT report with you. Return to emergency room for any new or worsening symptoms. Prescriptions: Omeprazole 20 mg PO DAILY #30 tablet. traMADoL [Ultram 50 MG tab] 50 mg PO Q6HR PRN #10 tablet PRN Reason: Pain , Severe (7-10) Ondansetron [Zofran Odt] 4 mg PO Q8HR PRN #7 tab.rapdis PRN Reason: Nausea And Vomiting Referrals: DENNIS MOHAN MD [Staff Physician] - 2-3 Days [facility] [Provider Group] - 2-3 Days [facility] [Provider Group] - 2-3 Days Time of Disposition: 13:03 Print Language: WELSH
[2020-02-12] MEDS ORDERED: HYDROmorphone 1 MG/1 ML INJ IV ONE (12:05)
--- NOTE | 2020-02-12 12:46 | Cat Scan Report ---
CT ABDOMEN AND PELVIS WITH CONTRAST INDICATION / CLINICAL INFORMATION: upper abd pain, n/v, mildly elevated LFTs. TECHNIQUE: Axial CT images were obtained through the abdomen and pelvis after 100 cc Omnipaque [address] scans at this location are performed using CT dose reduction for ALARA by means of automated exposure control. COMPARISON: CT abdomen and pelvis with contrast from 04/29/2019. FINDINGS: LOWER CHEST: A 5.5 mm noncalcified solid nodule is seen anteriorly along the left lower lobe abutting the fissure on image 1 of series 2. No other significant abnormality. LIVER: There is generalized steatosis without other significant abnormalities. GALLBLADDER: No significant abnormality. BILE DUCTS: No significant abnormality. PANCREAS: Previously seen findings of pancreatitis have improved. Mild peripancreatic inflammation an d a small amount of free fluid remain. Previously described fullness and heterogeneity along the panc reatic head/uncinate process has improved. No distinct mass is identified. There is stable dilatation of the pancreatic duct without a distinct intraductal lesion. SPLEEN: No significant abnormality. ADRENALS: No significant abnormality. RIGHT KIDNEY / URETER: No significant abnormality. LEFT KIDNEY / URETER: No significant abnormality. STOMACH / SMALL BOWEL: There is new moderate thickening of the gastric antrum without significant dave rounding inflammation or a distinct mass. Secondary moderate to severe narrowing of the gastric lumen is noted at the level of the changes on images 78 through 91 of series 2. No significant abnormality of the small bowel. COLON: There is generalized diverticulosis without evidence of diverticulitis or other significant ab normalities. APPENDIX: No significant abnormality. PERITONEUM: No free fluid. No free air. No fluid collection. LYMPH NODES: No significant adenopathy. AORTA / ARTERIES: No significant abnormality. IVC / VEINS: No significant abnormality. URINARY BLADDER: No significant abnormality. REPRODUCTIVE ORGANS: No significant abnormality. ADDITIONAL FINDINGS: None. SKELETAL SYSTEM: No acute abnormality or significant interval changes. IMPRESSION: 1. Improvement of the previously seen pancreatitis. 2. New moderate thickening of the distal stomach that is of uncertain etiology. Considerations includ e infectious and inflammatory processes and less likely neoplasm. Endoscopy may be helpful for furthe r evaluation. 3. 5.5 mm incidental left lower lobe nodule. If the patient has pertinent risk factors for malignancy , a follow-up CT of the chest without contrast and 1 year is recommended. Otherwise, no follow-up whitley ging is indicated. 4. Additional findings as above. Signer Name: Vimal Delgadillo MD Signed: 02/12/2020 12:41 PM Workstation Name: [id number]
[2020-02-12 13:08] LABS: Bacteria,Urine 1+ /HPF (Negative); Bilirubin,Urine NEG (Negative); Blood,Urine NEG (Negative); Color,Urine Amber (Yellow); Mucus,Urine 3+ /HPF
[2020-02-12 13:28] VITALS: BP 146/91
== END 2020-02-12 13:26 | disposition home or self-care (01) ==
LOC: ED 06:35
DX: F10.10 Alcohol abuse, uncomplicated (principal); R91.8 Other nonspecific abnormal finding of lung field; R11.2 Nausea with vomiting, unspecified; R94.5 Abnormal results of liver function studies; F17.200 Nicotine dependence, unspecified, uncomplicated; Z79.899 Other long term (current) drug therapy
CPT/HCPCS: 36415; 74177; 80053; 81001; 83690; 85007; 85025; 96361; 96374; 96375; 99284; C9113; J1170; J2405; J3010; J7030; Q9967

== ENCOUNTER 2020-05-28 08:12 | Emergency (ER) | payer SELFPAY ==
--- NOTE | 2020-05-28 08:31 | Event Note ---
ED Screening Note ED Screening Note: 54-year-old admitted emergency room department complaining of a 1 week history of decreased appetite and generalized weakness. No fever, chills, sweats. No chest pain no abdominal pain no nausea vomiting This initial assessment/diagnostic orders/clinical plan/treatment(s) is/are subject to change based on patients health status, clinical progression and re- assessment by fellow clinical providers in the ED. Further treatment and workup at subsequent clinical providers discretion. Patient/guardian urged not to elope from the ED as their condition may be serious if not clinically assessed and managed. Initial orders include:
[2020-05-28] MEDS ORDERED: METOCLOPRAMIDE 10 MG/2 ML INJ IV ONE (08:47)
[2020-05-28] MEDS ORDERED: SODIUM CHLORIDE 0.9% 1000 ML 1,000 ML IV ONE ×2 (08:48→10:05)
--- NOTE | 2020-05-28 08:49 | Emergency Department Report ---
ED General Adult HPI - General Chief complaint: Weakness Stated complaint: WEAKNESS X 1 WEEK Time Seen by Provider: 05/28/20 08:36 Source: patient Mode of arrival: Ambulatory Limitations: No Limitations - History of Present Illness Initial comments: Patient is a 54-year-old male with history of abdominal hernia repair who presents emergency department for evaluation of generalized weakness associated with nausea, loss of appetite, and failure to have bowel movement x1 week. Patient complains of mild crampy diffuse abdominal pain, denies cough, denies shortness of breath, denies sore throat, denies fever, denies dysuria. - Related Data Previous Rx's Medication Instructions Recorded Last Taken Type Folic Acid [Folvite] 1 mg PO QDAY #30 tablet 04/30/19 Unknown Rx Ondansetron [Zofran Odt] 4 mg PO Q8HR #15 tab.rapdis 04/30/19 Unknown Rx Thiamine [Vitamin B-1] 100 mg PO QDAY #30 tablet 04/30/19 Unknown Rx oxyCODONE [roxiCODONE] 5 mg PO Q6HR PRN #15 tablet 04/30/19 Unknown Rx Omeprazole 20 mg PO DAILY #30 tablet. 02/12/20 Unknown Rx Ondansetron [Zofran Odt] 4 mg PO Q8HR PRN #7 tab.rapdis 02/12/20 Unknown Rx traMADoL [Ultram 50 MG tab] 50 mg PO Q6HR PRN #10 tablet 02/12/20 Unknown Rx Allergies Allergy/AdvReac Type Severity Reaction Status Date / Time No Known Allergies Allergy Verified 05/28/20 08:19 ED Review of Systems ROS: Stated complaint: WEAKNESS X 1 WEEK Other details as noted in HPI Comment: All other systems reviewed and negative ED Past Medical Hx - Past Medical History Previous Medical History?: Yes Additional medical history: Pancreatitis - Surgical History Additional Surgical History: Hernia repair - Social History Smoking Status: Current Every Day Smoker Substance Use Type: Alcohol - Medications Home Medications: Home Medications Medication Instructions Recorded Confirmed Last Taken Type Folic Acid [Folvite] 1 mg PO QDAY #30 tablet 04/30/19 Unknown Rx Ondansetron [Zofran Odt] 4 mg PO Q8HR #15 tab.rapdis 04/30/19 Unknown Rx Thiamine [Vitamin B-1] 100 mg PO QDAY #30 tablet 04/30/19 Unknown Rx oxyCODONE [roxiCODONE] 5 mg PO Q6HR PRN #15 tablet 04/30/19 Unknown Rx Omeprazole 20 mg PO DAILY #30 tablet. 02/12/20 Unknown Rx Ondansetron [Zofran Odt] 4 mg PO Q8HR PRN #7 tab.rapdis 02/12/20 Unknown Rx traMADoL [Ultram 50 MG tab] 50 mg PO Q6HR PRN #10 tablet 02/12/20 Unknown Rx ED Physical Exam - General Limitations: No Limitations General appearance: alert, in no apparent distress - Head Head exam: Present: atraumatic, normocephalic - Eye Eye exam: Present: normal appearance - ENT ENT exam: Present: mucous membranes moist - Neck Neck exam: Present: normal inspection - Respiratory Respiratory exam: Present: normal lung sounds bilaterally. Absent: respiratory distress - Cardiovascular Cardiovascular Exam: Present: regular rate, normal rhythm - GI/Abdominal GI/Abdominal exam: Present: soft, normal bowel sounds, other (Mild diffuse tenderness) - Rectal Rectal exam: Present: deferred - Extremities Exam Extremities exam: Present: normal inspection - Back Exam Back exam: Present: normal inspection - Neurological Exam Neurological exam: Present: alert, oriented X3 - Psychiatric Psychiatric exam: Present: normal affect, normal mood - Skin Skin exam: Present: warm, dry, intact, normal color. Absent: rash ED Course Vital Signs 05/28/20 05/28/20 05/28/20 08:19 09:32 10:14 Temperature 97.9 F Pulse Rate 107 H 74 Respiratory 20 18 Rate Blood Pressure 116/79 Blood Pressure 125/76 [Left] O2 Sat by Pulse 97 100 100 Oximetry 05/28/20 11:00 Temperature Pulse Rate Respiratory Rate Blood Pressure Blood Pressure [Left] O2 Sat by Pulse 100 Oximetry - Reevaluation(s) Reevaluation #1: 05/28/20 08:49 Patient initially treated with IV normal saline 1 L x 1, Reglan 10 mg IV x1 Reevaluation #2: 05/28/20 12:42 Patient reevaluated and in no acute distress. Abdomen soft nontender, patient tolerating p.o. Patient advised to follow-up with primary care doctor 1 to 2 days for reevaluation including outpatient COVID-19 testing. ED Medical Decision Making - Lab Data Result diagrams: 05/28/20 08:55 05/28/20 08:55 Labs 05/28/20 05/28/20 05/28/20 08:55 08:55 08:55 WBC 2.9 L RBC 3.77 Hgb 14.1 Hct 40.6 MCV 108 H MCH 38 H MCHC 35 H RDW 12.7 L Plt Count 79 L Mckean % (Auto) Experimental Machinist Seg Neutrophils % Experimental Machinist Sodium 131 L Potassium 4.3 Chloride 89.8 L Carbon Dioxide 22 Anion Gap 24 BUN 6 L Creatinine 0.7 L Estimated GFR > 60 BUN/Creatinine Ratio 9 Glucose 91 Calcium 8.8 Total Bilirubin 0.60 AST 163 H ALT 57 H Alkaline Phosphatase 65 Troponin T < 0.010 Total Protein 7.3 Albumin 4.2 Albumin/Globulin Ratio 1.4 Lipase 37 Vital Signs 05/28/20 05/28/20 05/28/20 08:19 09:32 10:14 Temperature 97.9 F Pulse Rate 107 H 74 Respiratory 20 18 Rate Blood Pressure 116/79 Blood Pressure 125/76 [Left] O2 Sat by Pulse 97 100 100 Oximetry 05/28/20 11:00 Temperature Pulse Rate Respiratory Rate Blood Pressure Blood Pressure [Left] O2 Sat by Pulse 100 Oximetry Critical care attestation.: If time is entered above; I have spent that time in minutes in the direct care of this critically ill patient, excluding procedure time. ED Disposition Clinical Impression: Generalized weakness Disposition: DC-01 TO HOME OR SELFCARE Is pt being admited?: No Condition: Stable Instructions: Weakness, [id number] Referrals: PRIMARY CARE, [Primary Care Provider] - 3-5 Days
[2020-05-28 09:40] LABS: Alanine Aminotransferase 57 units/L (7-56); Albumin 4.2 g/dL (3.9-5); Blood Urea Nitrogen 6 mg/dL (9-20); Calcium 8.8 mg/dL (8.4-10.2); Hemolysis Index 5
[2020-05-28 09:41] LABS: BUN/Creatinine Ratio 9
[2020-05-28 09:47] VITALS: BP 125/76
[2020-05-28 09:55] LABS: Hematocrit 40.6 % (35.5-45.6); Hemoglobin 14.1 gm/dl (11.8-15.2); Mean Corpuscular HGB Conc 35 % (32-34); Mean Corpuscular Volume 108 fl (84-94); Red Blood Count 3.77 M/mm3 (3.65-5.03); Red Cell Distribution Width 12.7 % (13.2-15.2)
[2020-05-28 09:59] LABS: Platelet Count 79 K/mm3 (140-440)
--- NOTE | 2020-05-28 10:32 | Cat Scan Report ---
CT ABDOMEN AND PELVIS WITH CONTRAST INDICATION / CLINICAL INFORMATION: abdominal pain sbo. TECHNIQUE: Axial CT images were obtained through the abdomen and pelvis after IV contrast. All CT scans at this location are performed using CT dose reduction for ALARA by means of automated exposure control. COMPARISON: 02/12/2020 FINDINGS: LOWER CHEST: Mild right lung base atelectasis. Paraseptal emphysematous lung changes noted along the anterior border of the medial lobe unchanged from prior exam. No acute process of the chest. LIVER: Diffuse hepatic steatosis. No focal hepatic lesions. GALLBLADDER: No significant abnormality. BILE DUCTS: No significant abnormality. PANCREAS: Mild dilatation of the pancreatic duct measures 4 mm be seen in chronic pancreatitis. No fo zelda pancreatic lesions. Interval resolution of previously noted pancreatic and peripancreatic inflamm atory changes. SPLEEN: No significant abnormality. ADRENALS: No significant abnormality. RIGHT KIDNEY / URETER: No significant abnormality. LEFT KIDNEY / URETER: No significant abnormality. STOMACH / SMALL BOWEL: No significant abnormality. No mechanical bowel obstruction COLON: No significant abnormality. APPENDIX: No significant abnormality. PERITONEUM: No free fluid. No free air. No fluid collection. LYMPH NODES: No significant adenopathy. AORTA / ARTERIES: Mild atherosclerotic calcification without acute abnormality. IVC / VEINS: No significant abnormality. URINARY BLADDER: No significant abnormality. REPRODUCTIVE ORGANS: No significant abnormality. ADDITIONAL FINDINGS: Postsurgical changes are noted of the midline ventral abdominal wall. SKELETAL SYSTEM: Diffuse osteopenia is noted. Osteonecrosis noted of the bilateral femoral heads. Hem isacralization of L5 on the left. Multilevel degenerative changes are noted of the spine. No aggressi ve osseous lesions. IMPRESSION: 1. No acute inflammatory process of the abdomen or pelvis. Specifically, no mechanical bowel obstruct ion. 2. Mild persistent dilatation of the pancreatic duct can be seen in chronic pancreatitis. There has b een interval resolution of the previously noted acute inflammatory changes of the pancreas when dean red to 02/12/2020. 3. Diffuse hepatic steatosis. Signer Name: Rich Pascual MD Signed: 05/28/2020 10:28 AM Workstation Name: [id number]
[2020-05-28 14:04] LABS: Total Cells Counted 100
[2020-05-28 14:05] LABS: Platelet Estimate Consistent w Auto; RBC Morphology Normal
== END 2020-05-28 12:30 | disposition home or self-care (01) ==
LOC: ED 08:12
DX: R53.1 Weakness (principal); F17.200 Nicotine dependence, unspecified, uncomplicated; Z79.899 Other long term (current) drug therapy
CPT/HCPCS: 36415; 74177; 80053; 83690; 84484; 85007; 85025; 96361; 96374; 99284; J2765; J7030; Q9967

== ENCOUNTER 2020-11-04 21:44 | Inpatient (IN) | payer SELFPAY ==
[2020-11-05 01:54] LABS: Basophils % (Auto) 0.7 % (0.0-1.8); Eosinophils % (Auto) 0.1 % (0.0-4.3); Mean Corpuscular HGB Conc 36 % (32-34); Mean Corpuscular Volume 109 fl (84-94); Monocytes # (Auto) 0.6 K/mm3 (0.0-0.8); Monocytes % (Auto) 11.3 % (0.0-7.3); Red Blood Count 4.06 M/mm3 (3.65-5.03); Red Cell Distribution Width 12.7 % (13.2-15.2)
[2020-11-05 01:55] LABS: Hematocrit 44.4 % (35.5-45.6); Hemoglobin 15.8 gm/dl (11.8-15.2); Platelet Count 87 K/mm3 (140-440)
[2020-11-05 02:15] LABS: Alanine Aminotransferase 42 units/L (7-56); Blood Urea Nitrogen 11 mg/dL (9-20); Calcium 9.4 mg/dL (8.4-10.2); Hemolysis Index 23
[2020-11-05 02:16] LABS: BUN/Creatinine Ratio 16
[2020-11-05] MEDS ORDERED: ONDANSETRON 4 MG/2 ML INJ IV ONE ×2 (03:47→06:00)
[2020-11-05] MEDS ORDERED: MORPHINE 4 MG/1 ML INJ IV ONE (03:47)
[2020-11-05] MEDS ORDERED: SODIUM CHLORIDE 0.9% 1000 ML 1,000 ML IV ONE (03:57)
--- NOTE | 2020-11-05 03:58 | Emergency Department Report ---
<MARSHA LERMA III - Last Filed: 11/05/20 05:33> ED Abdominal Pain HPI - General Chief Complaint: Abdominal Pain Stated Complaint: ABD PAIN PUI?: No - Related Data Previous Rx's Medication Instructions Recorded Last Taken Type Folic Acid [Folvite] 1 mg PO QDAY #30 tablet 04/30/19 Unknown Rx Ondansetron [Zofran Odt] 4 mg PO Q8HR #15 tab.rapdis 04/30/19 Unknown Rx Thiamine [Vitamin B-1] 100 mg PO QDAY #30 tablet 04/30/19 Unknown Rx oxyCODONE [roxiCODONE] 5 mg PO Q6HR PRN #15 tablet 04/30/19 Unknown Rx Omeprazole 20 mg PO DAILY #30 tablet. 02/12/20 Unknown Rx Ondansetron [Zofran Odt] 4 mg PO Q8HR PRN #7 tab.rapdis 02/12/20 Unknown Rx traMADoL [Ultram 50 MG tab] 50 mg PO Q6HR PRN #10 tablet 02/12/20 Unknown Rx Allergies Allergy/AdvReac Type Severity Reaction Status Date / Time hydromorphone [From Dilaudid] AdvReac Itching Verified 11/05/20 06:44 ED Past Medical Hx - Medications Home Medications: Home Medications Medication Instructions Recorded Confirmed Last Taken Type Folic Acid [Folvite] 1 mg PO QDAY #30 tablet 04/30/19 Unknown Rx Ondansetron [Zofran Odt] 4 mg PO Q8HR #15 tab.rapdis 04/30/19 Unknown Rx Thiamine [Vitamin B-1] 100 mg PO QDAY #30 tablet 04/30/19 Unknown Rx oxyCODONE [roxiCODONE] 5 mg PO Q6HR PRN #15 tablet 04/30/19 Unknown Rx Omeprazole 20 mg PO DAILY #30 tablet. 02/12/20 Unknown Rx Ondansetron [Zofran Odt] 4 mg PO Q8HR PRN #7 tab.rapdis 02/12/20 Unknown Rx traMADoL [Ultram 50 MG tab] 50 mg PO Q6HR PRN #10 tablet 02/12/20 Unknown Rx ED Course - Reevaluation(s) Reevaluation #1: I reviewed the findings and management of this patient in real-time and I have personally seen and examined this patient and participated in the decision making for this patient with the midlevel. Patient is a 55-year-old male who presents emergency room for abdominal pain. Patient has history of pancreatitis. Patient had labs done and found to have an elevated lipase. Patient will have a CT of the abdomen done. I examined the patient. Patient has abdominal tenderness. Patient CV exam shows normal S1-S2. Patient's lung sounds are clear to auscultation. Patient will have a CT done and this will be done afterwards. 11/05/20 04:13 ED Medical Decision Making - Lab Data Result diagrams: 11/05/20 01:29 11/05/20 01:29 ED Disposition Clinical Impression: Alcoholic liver disease, Acute pancreatitis Disposition: DC-09 OP ADMIT IP TO THIS HOSP Condition: Good Instructions: Acute Pancreatitis, [id number] Referrals: PRIMARY CARE, [Primary Care Provider] - 3-5 Days <DION CASTANO - Last Filed: 11/05/20 07:22> ED Abdominal Pain HPI - General Source: patient Mode of arrival: Ambulatory Limitations: No Limitations - History of Present Illness Initial Comments: 55-year-old -Iranian male that looks much older than his stated age. He presents to the emergency room complaining of abdominal pain for the last 4 days. Patient states he has been nauseated and vomiting up everything. Patient reports that he drinks a beer daily and drank 1/5 on the weekend. Patient does have a past medical history of pancreatitis. Patient states he is vaccinated for Covid. Denies any fever chills no chest pain or shortness of breath. Complaint: abdominal pain Location: diffuse Radiation: none Severity scale (0 -10): 9 Quality: stabbing, sharp Consistency: constant Improves With: nothing Worsens With: eating Associated Symptoms: nausea, vomiting ED Review of Systems ROS: Stated complaint: ABD PAIN Other details as noted in HPI Comment: All other systems reviewed and negative ED Past Medical Hx - Past Medical History Previous Medical History?: Yes Additional medical history: Pancreatitis - Surgical History Past Surgical History?: Yes Additional Surgical History: Hernia repair - Social History Smoking Status: Current Every Day Smoker Substance Use Type: Alcohol ED Physical Exam - General Limitations: No Limitations General appearance: alert, in no apparent distress, cachectic - Head Head exam: Present: atraumatic, normocephalic - Eye Eye exam: Present: normal appearance - ENT ENT exam: Present: normal external ear exam - Neck Neck exam: Present: normal inspection, full ROM - Respiratory Respiratory exam: Present: normal lung sounds bilaterally. Absent: respiratory distress, accessory muscle use - Cardiovascular Cardiovascular Exam: Present: regular rate - GI/Abdominal GI/Abdominal exam: Present: soft, normal bowel sounds. Absent: distended, tenderness, guarding - Extremities Exam Extremities exam: Present: normal inspection, full ROM - Back Exam Back exam: Present: full ROM - Neurological Exam Neurological exam: Present: alert, oriented X3, normal gait - Psychiatric Psychiatric exam: Present: normal affect, normal mood - Skin Skin exam: Present: warm, dry, intact, normal color, other (Skin is very dry leathery). Absent: rash ED Course Vital Signs 11/05/20 01:20 Temperature 98.5 F Pulse Rate 97 H Respiratory 18 Rate Blood Pressure 145/95 O2 Sat by Pulse 98 Oximetry ED Medical Decision Making - Lab Data Result diagrams: 11/05/20 01:29 11/05/20 01:29 - Radiology Data Radiology results: report reviewed Institution [facility] Approval Date 2020-11-05 05:41:02 Other Patient ID My Comment(s) Study Comments [facility] [address] [place] [address] Cat Scan Report Signed Patient: HARRIS KUMAR MR#: [id number] : 1965 Acct:[id number] Age/Sex: 55 / M ADM Date: 11/04/20 Loc: ED Attending Dr: Ordering Physician: ARLIN WYMAN Date of Service: 11/05/20 Procedure(s): CT abdomen pelvis w con Accession Number(s): [id number] cc: ARLIN WYMAN CT ABDOMEN AND PELVIS WITH CONTRAST INDICATION / CLINICAL INFORMATION: Epigastric pain, elevated Lipase. History of hernia repair. TECHNIQUE: Axial CT images were obtained through the abdomen and pelvis after 100 mL Omnipaque [address] scans at this location are performed using CT dose reduction for ALARA by means of automated exposure control. COMPARISON: CT dated 05/28/20 FINDINGS: LOWER CHEST: No significant abnormality. LIVER: Enlarged and hypodense characteristic of fatty infiltration. GALLBLADDER: No significant abnormality. BILE DUCTS: No significant abnormality. PANCREAS: Mild peripancreatic inflammation. No peripancreatic fluid collection. Mild prominence of pancreatic duct is unchanged. SPLEEN: No significant abnormality. ADRENALS: No significant abnormality. RIGHT KIDNEY / URETER: No significant abnormality. LEFT KIDNEY / URETER: No significant abnormality. STOMACH / SMALL BOWEL: No significant abnormality. COLON: No significant abnormality. APPENDIX: No significant abnormality. PERITONEUM: No free fluid. No free air. No fluid collection. LYMPH NODES: No significant adenopathy. AORTA / ARTERIES: No significant abnormality. IVC / VEINS: Circumaortic left renal vein. No acute abnormality. URINARY BLADDER: No significant abnormality. REPRODUCTIVE ORGANS: No significant abnormality. ADDITIONAL FINDINGS: None. SKELETAL SYSTEM: Bilateral early stage femoral head osteonecrosis/AVN. This finding can be seen in retrospect on prior studies. IMPRESSION: 1. Mild pancreatitis. No peripancreatic fluid collection. 2. Hepatic steatosis, unchanged. 3. Bilateral early stage femoral head osteonecrosis/AVN, unchanged. Signer Name: Michaela Harry MD Signed: 11/05/2020 5:35 AM Workstation Name: [id number] Transcribed By: PHILIP Dictated By: Dioni Harry MD Electronically Authenticated By: Dioni Harry MD Signed Date/Time: 11/05/20534 DD/ 0 TD/TT: - Medical Decision Making 55-year-old -Iranian male that looks much older than his stated age. He presents to the emergency room complaining of abdominal pain for the last 4 days. Patient states he has been nauseated and vomiting up everything. Patient reports that he drinks a beer daily and drank 1/5 on the weekend. Patient does have a past medical history of pancreatitis. Patient states he is vaccinated for Covid. Denies any fever chills no chest pain or shortness of breath. CBC CMP urinalysis lipase Results shows a lipase of 394 and LFTs are all elevated. CT of abdomen shows mild pancreatitis, fatty liver disease and bilateral early stages of femoral head osteonecrosis/AVN, unchanged. Patient is been given morphine and Zofran for pain management. Patient's been given another dose of Zofran and Dilaudid 1 mg IV, Patient reports to nurse he is having some itchiness. Benadryl 25 mg IV has been ordered. Patient's been receiving normal saline bolus. - Differential Diagnosis Pancreatitis, GERD, mesenteric infarct Critical care attestation.: If time is entered above; I have spent that time in minutes in the direct care of this critically ill patient, excluding procedure time. ED Disposition Is pt being admited?: Yes Does the pt Need Aspirin: No
[2020-11-05 04:23] LABS: Bilirubin,Urine SM (Negative); Blood,Urine MOD (Negative); Color,Urine Amber (Yellow); Mucus,Urine 3+ /HPF
[2020-11-05 04:33] LABS: Protein,Urine >500 mg/dL (Negative)
[2020-11-05 04:35] LABS: Ictotest,Urine Negative (Negative)
--- NOTE | 2020-11-05 05:39 | Cat Scan Report ---
CT ABDOMEN AND PELVIS WITH CONTRAST INDICATION / CLINICAL INFORMATION: Epigastric pain, elevated Lipase. History of hernia repair. TECHNIQUE: Axial CT images were obtained through the abdomen and pelvis after 100 mL Omnipaque [address] scans at this location are performed using CT dose reduction for ALARA by means of automated exposure control. COMPARISON: CT dated 05/28/20 FINDINGS: LOWER CHEST: No significant abnormality. LIVER: Enlarged and hypodense characteristic of fatty infiltration. GALLBLADDER: No significant abnormality. BILE DUCTS: No significant abnormality. PANCREAS: Mild peripancreatic inflammation. No peripancreatic fluid collection. Mild prominence of pa ncreatic duct is unchanged. SPLEEN: No significant abnormality. ADRENALS: No significant abnormality. RIGHT KIDNEY / URETER: No significant abnormality. LEFT KIDNEY / URETER: No significant abnormality. STOMACH / SMALL BOWEL: No significant abnormality. COLON: No significant abnormality. APPENDIX: No significant abnormality. PERITONEUM: No free fluid. No free air. No fluid collection. LYMPH NODES: No significant adenopathy. AORTA / ARTERIES: No significant abnormality. IVC / VEINS: Circumaortic left renal vein. No acute abnormality. URINARY BLADDER: No significant abnormality. REPRODUCTIVE ORGANS: No significant abnormality. ADDITIONAL FINDINGS: None. SKELETAL SYSTEM: Bilateral early stage femoral head osteonecrosis/AVN. This finding can be seen in re trospect on prior studies. IMPRESSION: 1. Mild pancreatitis. No peripancreatic fluid collection. 2. Hepatic steatosis, unchanged. 3. Bilateral early stage femoral head osteonecrosis/AVN, unchanged. Signer Name: Michaela Harry MD Signed: 11/05/2020 5:35 AM Workstation Name: [id number]
[2020-11-05] MEDS ORDERED: HYDROmorphone 1 MG/1 ML INJ IV ONE (05:59)
[2020-11-05] MEDS ORDERED: diphenhydrAMINE 50 MG/ML VIAL IV ONE (06:42)
[2020-11-05] MEDS ORDERED: diphenhydrAMINE 50 MG/ML VIAL ONE (06:42)
--- NOTE | 2020-11-05 09:30 | History and Physical Report ---
History of Present Illness Date of examination: 11/05/20 Date of admission: 11/05/20 07:22 Chief complaint: abd pain History of present illness: 55-year-old -Citizen Of [place] male presents to the emergency room complaining of abdominal pain for the last 4 days. The patient reports that his abdominal pain began on Monday and worsened on Monday. Patient states he has been nauseated and vomiting up everything approximately 2-3 times per day. Patient reports that he drinks a beer daily and drank 1/5 on the weekend on Monday prior to his symptom. Patient does have a past medical history of pancreatitis. Patient states he is vaccinated for Covid. Denies any fever chills no chest pain or shortness of breath. Past History Past Medical History: other (Pancreatitis, GERD, mesenteric) Past Surgical History: No surgical history Social history: alcohol abuse Family history: no significant family history Medications and Allergies Allergies Allergy/AdvReac Type Severity Reaction Status Date / Time hydromorphone [From Dilaudid] AdvReac Itching Verified 11/05/20 06:44 Home Medications Medication Instructions Recorded Confirmed Last Taken Type Folic Acid [Folvite] 1 mg PO QDAY #30 tablet 04/30/19 Unknown Rx Ondansetron [Zofran Odt] 4 mg PO Q8HR #15 tab.iqra 04/30/19 Unknown Rx Thiamine [Vitamin B-1] 100 mg PO QDAY #30 tablet 04/30/19 Unknown Rx oxyCODONE [roxiCODONE] 5 mg PO Q6HR PRN #15 tablet 04/30/19 Unknown Rx Omeprazole 20 mg PO DAILY #30 tablet. 02/12/20 Unknown Rx Ondansetron [Zofran Odt] 4 mg PO Q8HR PRN #7 tab.rapdis 02/12/20 Unknown Rx traMADoL [Ultram 50 MG tab] 50 mg PO Q6HR PRN #10 tablet 02/12/20 Unknown Rx Review of Systems All systems: negative Exam - Constitutional Vitals: Temp Pulse Resp BP Pulse Ox 98.5 F 97 H 18 145/95 98 11/05/20 01:20 11/05/20 01:20 11/05/20 01:20 11/05/20 01:20 11/05/20 01:20 General appearance: Present: no acute distress, well-nourished - EENT Eyes: Present: PERRL ENT: hearing intact, clear oral mucosa - Neck Neck: Present: supple, normal ROM - Respiratory Respiratory effort: normal Respiratory: bilateral: CTA - Cardiovascular Heart Sounds: Present: S1 & S2. Absent: rub, click - Extremities Extremities: pulses symmetrical, No edema Peripheral Pulses: within normal limits - Abdominal General gastrointestinal: Present: soft, non-tender, non-distended, normal bowel sounds Male genitourinary: Present: normal - Integumentary Integumentary: Present: clear, warm, dry - Musculoskeletal Musculoskeletal: gait normal, strength equal bilaterally - Psychiatric Psychiatric: appropriate mood/affect, intact judgment & insight - Neurologic Neurologic: CNII-XII intact, moves all extremities Results - Labs CBC & Chem 7: 11/05/20 01:11/05/20 01: Labs: Laboratory Last Values WBC 4.9 K/mm3 (4.5-11.0) 11/05/20 01: RBC 4.06 M/mm3 (3.65-5.03) 11/05/20 01: Hgb 15.8 gm/dl (11.8-15.2) H 11/05/20 01: Hct 44.4 % (35.5-45.6) 11/05/20 01: MCV 109 fl (84-94) H 11/05/20 01: MCH 39 pg (28-32) H 11/05/20 01: MCHC 36 % (32-34) H 11/05/20 01: RDW 12.7 % (13.2-15.2) L 11/05/20: Plt Count 87 K/mm3 (140-440) L 11/05/20 01: Lymph % (Auto) 20.0 % (13.4-35.0) 11/05/20 01: [place] % (Auto) 11.3 % (0.0-7.3) H 11/05/20 01: Eos % (Auto) 0.1 % (0.0-4.3) 11/05/20 01: Baso % (Auto) 0.7 % (0.0-1.8) 11/05/20 01: Lymph # (Auto) 1.0 K/mm3 (1.2-5.4) L 11/05/20 01:29 [place] # (Auto) 0.6 K/mm3 (0.0-0.8) 11/05/20 01:29 Eos # (Auto) 0.0 K/mm3 (0.0-0.4) 11/05/20 01:29 Baso # (Auto) 0.0 K/mm3 (0.0-0.1) 11/05/20 01:29 Seg Neutrophils % 67.9 % (40.0-70.0) 11/05/20 01:29 Seg Neutrophils # 3.3 K/mm3 (1.8-7.7) 11/05/20 01:29 Sodium 134 mmol/L (137-145) L 11/05/20 01: Potassium 4.5 mmol/L (3.6-5.0) 11/05/20 01: Chloride 87.1 mmol/L (98-107) L 11/05/20 01:29 Carbon Dioxide 23 mmol/L (22-30) 11/05/20 01:29 Anion Gap 28 mmol/L 11/05/20 01:29 BUN 11 mg/dL (9-20) 11/05/20 01:29 Creatinine 0.7 mg/dL (0.8-1.3) L 11/05/20 01:29 Estimated GFR > 60 ml/min 11/05/20 01:29 BUN/Creatinine Ratio 16 % 11/05/20 01:29 Glucose 133 mg/dL (75-100) H 11/05/20 01:29 Calcium 9.4 mg/dL (8.4-10.2) 11/05/20 01:29 Total Bilirubin 0.90 mg/dL (0.1-1.2) 11/05/20 01:29 AST 95 units/L (5-40) H 11/05/20 01:29 ALT 42 units/L (7-56) 11/05/20 01:29 Alkaline Phosphatase 84 units/L (35-129) 11/05/20 01:29 Total Protein 8.4 g/dL (6.3-8.2) H 11/05/20 01:29 Albumin 5.0 g/dL (3.9-5) 11/05/20 01:29 Albumin/Globulin Ratio 1.5 % 11/05/20 01:29 Lipase 395 units/L (13-60) H 11/05/20 01:29 Urine Color Citlaly (Yellow) 11/05/20 Unknown Urine Turbidity Clear (Clear) 11/05/20 Unknown Urine pH 5.0 (5.0-7.0) 11/05/20 Unknown Ur Specific [place] 1.032 (1.003-1.030) H 11/05/20 Unknown Urine Protein >500 mg/dL (Negative) 11/05/20 Unknown Urine Glucose (UA) 50 mg/dL (Negative) 11/05/20 Unknown Urine Ketones 80 mg/dL (Negative) 11/05/20 Unknown Urine Blood Mod (Negative) 11/05/20 Unknown Urine Nitrite Neg (Negative) 11/05/20 Unknown Urine Bilirubin Sm (Negative) 11/05/20 Unknown Urine Ictotest Negative (Negative) 11/05/20 Unknown Urine Urobilinogen 2.0 mg/dL (<2.0) 11/05/20 Unknown Ur Leukocyte Esterase Neg (Negative) 11/05/20 Unknown Urine WBC (Auto) 1.0 /HPF (0.0-6.0) 11/05/20 Unknown Urine RBC (Auto) 2.0 /HPF (0.0-6.0) 11/05/20 Unknown U Epithel Cells (Auto) 1.0 /HPF (0-13.0) 11/05/20 Unknown Urine Mucus 3+ /HPF 11/05/20 Unknown Assessment and Plan Assessment and plan: Acute EtOH pancreatitis. Continue with bowel rest. IV fluid hydration with normal saline. Supportive care and pain control. Follow serial lipase EtOH abuse. The patient will be placed on CIWA protocol. Patient has also been counseled on alcohol cessation
[2020-11-05] MEDS ORDERED: ONDANSETRON 4 MG/2 ML INJ IV PRN (09:33)
[2020-11-05] MEDS ORDERED: LORazepam 2 MG/ML VIAL IV PRN ×3 (09:33)
[2020-11-05] MEDS ORDERED: MORPHINE 2 MG/1 ML INJ IV PRN (09:33)
[2020-11-05] MEDS ORDERED: ACETAMINOPHEN 325 MG TAB PO PRN (10:00)
[2020-11-05] MEDS ORDERED: diphenhydrAMINE 50 MG/ML VIAL IV PRN (10:57)
[2020-11-05] MEDS: MORPHINE 4 MG/1 ML INJ IV PRN ×3 (11:10→22:08)
[2020-11-05] MEDS: SODIUM CHLORIDE 0.9% 1000 ML 1,000 ML IV SCH (12:16)
[2020-11-05] MEDS ORDERED: ENOXAPARIN 40 MG/0.4 ML INJ SUB-Q SCH (22:00)
[2020-11-06] MEDS: SODIUM CHLORIDE 0.9% 1000 ML 1,000 ML IV SCH (02:27)
[2020-11-06] MEDS: MORPHINE 4 MG/1 ML INJ IV PRN ×2 (02:27→07:10)
[2020-11-06 06:14] LABS: Basophils % (Auto) 0.2 % (0.0-1.8); Eosinophils % (Auto) 0.1 % (0.0-4.3); Hematocrit 45.9 % (35.5-45.6); Lymphocytes # (Auto) 0.7 K/mm3 (1.2-5.4); Mean Corpuscular HGB Conc 35 % (32-34); Monocytes # (Auto) 0.2 K/mm3 (0.0-0.8); Monocytes % (Auto) 4.9 % (0.0-7.3); Red Blood Count 4.16 M/mm3 (3.65-5.03); Red Cell Distribution Width 12.7 % (13.2-15.2)
[2020-11-06 06:17] LABS: Mean Corpuscular Volume 111 fl (84-94); Platelet Count 59 K/mm3 (140-440)
[2020-11-06 06:21] LABS: Blood Urea Nitrogen 9 mg/dL (9-20); Calcium 8.4 mg/dL (8.4-10.2); Hemolysis Index 9
[2020-11-06 06:30] LABS: BUN/Creatinine Ratio 18
--- NOTE | 2020-11-06 08:24 | Discharge Summary ---
Providers - Providers Date of Admission: 11/05/20 07:22 Date of discharge: 11/06/20 Attending physician: FLAQUITA ALMANZA Primary care physician: LIANNA LOPEZ MD Hospitalization Reason for admission: EtOH pancreatitis Condition: Good Hospital course: 55-year-old male with past medical history of pancreatitis and EtOH abuse who presented to the emergency department with complaints of abdominal pain for 4 days prior to admission. The patient was admitted with diagnosis of EtOH pancreatitis. The patient received IV fluid hydration, pain control, antiemetics and supportive care. Patient was kept n.p.o. for bowel rest and diet later advanced for which he tolerated. Patient was also placed on CIWA protocol but had no evidence of acute withdrawal. Lipase improved over the course of the hospitalization and patient is felt to have received maximal hospital benefit for discharge. Dedicated discharge time 32 minutes. Disposition: DC-01 TO HOME OR SELFCARE Final Discharge Diagnosis (Prints w/discharge instructions): EtOH pancreatitis, EtOH abuse Core Measure Documentation - Palliative Care Palliative Care/ Comfort Measures: Not Applicable - Core Measures Any of the following diagnoses?: none Exam - Constitutional Vitals: Temp Pulse Resp BP Pulse Ox 98.6 F 111 H 20 139/98 97 11/06/20 08:10 11/06/20 08:10 11/06/20 08:10 11/06/20 08:10 11/06/20 08:10 General appearance: Present: no acute distress, well-nourished - EENT Eyes: Present: PERRL ENT: hearing intact, clear oral mucosa - Neck Neck: Present: supple, normal ROM - Respiratory Respiratory effort: normal Respiratory: bilateral: CTA - Cardiovascular Heart Sounds: Present: S1 & S2. Absent: rub, click - Extremities Extremities: pulses symmetrical, No edema Peripheral Pulses: within normal limits - Abdominal General gastrointestinal: Present: soft, non-tender, non-distended, normal bowel sounds Male genitourinary: Present: normal - Integumentary Integumentary: Present: clear, warm, dry - Musculoskeletal Musculoskeletal: gait normal, strength equal bilaterally - Psychiatric Psychiatric: appropriate mood/affect, intact judgment & insight - Neurologic Neurologic: CNII-XII intact, moves all extremities Plan Activity: advance as tolerated Weight Bearing Status: Weight Bear as Tolerated Diet: regular Follow up with: PRIMARY CARE, [Primary Care Provider] - 3-5 Days Prescriptions: Folic Acid [Folvite] 1 mg PO QDAY #30 tablet Omeprazole 20 mg PO DAILY #30 tablet. oxyCODONE [roxiCODONE] 5 mg PO Q6HR PRN #15 tablet PRN Reason: Pain , Severe (7-10) Thiamine [Vitamin B-1] 100 mg PO QDAY #30 tablet Ondansetron [Zofran ODT TAB] 4 mg PO Q8HR #15 tab.iqra
[2020-11-06 11:32] VITALS: BP 122/91
== END 2020-11-06 13:23 | disposition home or self-care (01) | DRG 440 ==
LOC: ED 21:44 → 3A 11-05 07:22 → 4A 11-05 23:44
PROVIDERS: ADMIT Hospitalist; ATTEND Hospitalist
DX: K85.20 Alcohol induced acute pancreatitis without necrosis or infection (principal); F10.10 Alcohol abuse, uncomplicated; F17.200 Nicotine dependence, unspecified, uncomplicated; K21.9 Gastro-esophageal reflux disease without esophagitis; Z88.8 Allergy status to other drugs, medicaments and biological substances
CPT/HCPCS: 36415; 74177; 80048; 80053; 81001; 83690; 85025; 96374; G0378; J1170; J1200; J1650; J2270; J2405; J7030; Q9967

== ENCOUNTER 2021-03-14 11:21 | Emergency (ER) | payer SELFPAY ==
[2021-03-14 11:28] VITALS: BP 121/77
--- NOTE | 2021-03-14 12:51 | Emergency Department Report ---
- General Chief complaint: Extremity Problem,Nontraumatic Stated complaint: feet Time Seen by Provider: 03/14/21 11:58 Source: patient Mode of arrival: Ambulatory Limitations: No Limitations - History of Present Illness Initial comments: This is a 55-year-old male nontoxic, well nourished in appearance, no acute signs of distress presents to the ED with c/o of chronic left posterior foot itching with a scaly rash x6 months. Patient stated that it itches so much that after he is done itching it causes some pain. Currently patient denies any foot pain. Patient denies any injuries or trauma. Patient denies any redness or ecchymosis. Patient denies any fever, chills, nausea, vomiting, chest pain, shortness of breath, headache, stiff neck, numbness or tingling. Patient states allergies to hydromorphone. MD complaint: rash -: month(s) Severity scale (0 -10): 0 Improves with: none Worsens with: none Associated symptoms: denies other symptoms - Related Data Previous Rx's Medication Instructions Recorded Last Taken Type Ondansetron [Zofran ODT TAB] 4 mg PO Q8HR PRN #7 tab.rapdis 02/12/20 Unknown Rx traMADoL [Ultram 50 MG tab] 50 mg PO Q6HR PRN #10 tablet 02/12/20 Unknown Rx Folic Acid [Folvite] 1 mg PO QDAY #30 tablet 11/06/20 Unknown Rx Omeprazole 20 mg PO DAILY #30 tablet.dr 11/06/20 Unknown Rx Ondansetron [Zofran ODT TAB] 4 mg PO Q8HR #15 tab.rapdis 11/06/20 Unknown Rx Thiamine [Vitamin B-1] 100 mg PO QDAY #30 tablet 11/06/20 Unknown Rx oxyCODONE [roxiCODONE] 5 mg PO Q6HR PRN #15 tablet 11/06/20 Unknown Rx Clotrimazole 1% [Lotrimin] 1 applic TP BID #1 tube 03/14/21 Unknown Rx Allergies Allergy/AdvReac Type Severity Reaction Status Date / Time hydromorphone [From Dilaudid] Allergy Itching Verified 11/05/20 10:06 Abscess Boil HPI - HPI Chief Complaint: Extremity Problem,Nontraumatic Stated Complaint: feet Time Seen by Provider: 03/14/21 11:58 Home Medications: Previous Rx's Medication Instructions Recorded Last Taken Type Ondansetron [Zofran ODT TAB] 4 mg PO Q8HR PRN #7 tab.rapdis 02/12/20 Unknown Rx traMADoL [Ultram 50 MG tab] 50 mg PO Q6HR PRN #10 tablet 02/12/20 Unknown Rx Folic Acid [Folvite] 1 mg PO QDAY #30 tablet 11/06/20 Unknown Rx Omeprazole 20 mg PO DAILY #30 tablet. 11/06/20 Unknown Rx Ondansetron [Zofran ODT TAB] 4 mg PO Q8HR #15 tab.rapdis 11/06/20 Unknown Rx Thiamine [Vitamin B-1] 100 mg PO QDAY #30 tablet 11/06/20 Unknown Rx oxyCODONE [roxiCODONE] 5 mg PO Q6HR PRN #15 tablet 11/06/20 Unknown Rx Clotrimazole 1% [Lotrimin] 1 applic TP BID #1 tube 03/14/21 Unknown Rx Allergies/Adverse Reactions: Allergies Allergy/AdvReac Type Severity Reaction Status Date / Time hydromorphone [From Dilaudid] Allergy Itching Verified 11/05/20 10:06 ED Review of Systems ROS: Stated complaint: feet Other details as noted in HPI Comment: All other systems reviewed and negative Constitutional: denies: chills, fever Eyes: denies: eye pain, eye discharge, vision change ENT: denies: ear pain, throat pain Respiratory: denies: cough, shortness of breath, wheezing Cardiovascular: denies: chest pain, palpitations Endocrine: no symptoms reported Gastrointestinal: denies: abdominal pain, nausea, diarrhea Genitourinary: denies: urgency, dysuria Musculoskeletal: denies: back pain, joint swelling, arthralgia Skin: rash. denies: lesions, change in color, change in hair/nails, pruritus Neurological: denies: headache, weakness, paresthesias Psychiatric: denies: anxiety, depression Hematological/Lymphatic: denies: easy bleeding, easy bruising ED Past Medical Hx - Past Medical History Previous Medical History?: Yes Hx Congestive Heart Failure: No Hx Diabetes: No Hx Asthma: No Hx COPD: No Additional medical history: Pancreatitis - Surgical History Past Surgical History?: Yes Additional Surgical History: Hernia repair - Social History Smoking Status: Current Some Day Smoker - Medications Home Medications: Home Medications Medication Instructions Recorded Confirmed Last Taken Type Ondansetron [Zofran ODT TAB] 4 mg PO Q8HR PRN #7 tab.rapdis 02/12/20 Unknown Rx traMADoL [Ultram 50 MG tab] 50 mg PO Q6HR PRN #10 tablet 02/12/20 Unknown Rx Folic Acid [Folvite] 1 mg PO QDAY #30 tablet 11/06/20 Unknown Rx Omeprazole 20 mg PO DAILY #30 tablet. 11/06/20 Unknown Rx Ondansetron [Zofran ODT TAB] 4 mg PO Q8HR #15 tab.rapdis 11/06/20 Unknown Rx Thiamine [Vitamin B-1] 100 mg PO QDAY #30 tablet 11/06/20 Unknown Rx oxyCODONE [roxiCODONE] 5 mg PO Q6HR PRN #15 tablet 11/06/20 Unknown Rx Clotrimazole 1% [Lotrimin] 1 applic TP BID #1 tube 03/14/21 Unknown Rx ED Physical Exam - General Limitations: No Limitations General appearance: alert, in no apparent distress - Head Head exam: Present: atraumatic, normocephalic - Eye Eye exam: Present: normal appearance - Neck Neck exam: Present: normal inspection, full ROM. Absent: lymphadenopathy - Respiratory Respiratory exam: Absent: respiratory distress - Cardiovascular Cardiovascular Exam: Present: regular rate - Extremities Exam Extremities exam: Present: normal inspection, full ROM, normal capillary refill, other (left posterior foot scaly rash. Neurovascular within normal limits). Absent: tenderness, joint swelling - Back Exam Back exam: Present: normal inspection, full ROM - Neurological Exam Neurological exam: Present: alert, oriented X3, normal gait - Psychiatric Psychiatric exam: Present: normal affect, normal mood - Skin Skin exam: Present: warm, dry, intact, normal color. Absent: rash ED Course Vital Signs 03/14/21 11:24 Temperature 98.4 F Pulse Rate 83 Respiratory 18 Rate Blood Pressure 121/77 O2 Sat by Pulse 99 Oximetry - Reevaluation(s) Reevaluation #1: 03/14/21 13:15 Patient is speaking in full sentences with no signs of distress noted. ED Medical Decision Making - Medical Decision Making 55-year-old male that presents with tinea pedis. Patient is stable and was examined by me. Vital signs are stable at discharge. Patient was instructed to follow-up with a primary care doctor in 3-5 days or if symptoms worsen and continue return to emergency room as soon as possible. At time of discharge, the patient does not seem toxic or ill in appearance. No acute signs of distress noted. Patient agrees to discharge treatment plan of care. No further questions noted by the patient. Critical care attestation.: If time is entered above; I have spent that time in minutes in the direct care of this critically ill patient, excluding procedure time. ED Disposition Clinical Impression: Tinea pedis Qualifiers: Laterality: left Qualified Code(s): B35.3 - Tinea pedis Disposition: 01 HOME / SELF CARE / HOMELESS Is pt being admited?: No Does the pt Need Aspirin: No Condition: Stable Instructions: Athlete's Foot Additional Instructions: Follow-up with a primary care doctor in 3-5 days or if symptoms worsen and continue return to emergency room as soon as possible. Prescriptions: Clotrimazole 1% [Lotrimin] 1 applic TP BID #1 tube Referrals: PRIMARY CAREMD [Primary Care Provider] - 3-5 Days DENNIS MOHAN MD [Staff Physician] - 3-5 Days Time of Disposition: 13:16
== END 2021-03-15 04:38 | disposition home or self-care (01) ==
LOC: ED 11:21
DX: B35.3 Tinea pedis (principal); F17.200 Nicotine dependence, unspecified, uncomplicated
CPT/HCPCS: 99281

== ENCOUNTER 2021-10-11 15:19 | Inpatient (IN) | payer SELFPAY ==
[2021-10-11 17:59] LABS: Basophils % (Auto) 0.3 % (0.0-1.8); Hemoglobin 13.7 gm/dl (11.8-15.2); Lymphocytes # (Auto) 1.1 K/mm3 (1.2-5.4); Lymphocytes % (Auto) 20.2 % (13.4-35.0); Mean Corpuscular HGB Conc 34 % (32-34); Mean Corpuscular Volume 114 fl (84-94); Monocytes # (Auto) 0.8 K/mm3 (0.0-0.8); Monocytes % (Auto) 14.7 % (0.0-7.3); Platelet Count 131 K/mm3 (140-440); Red Blood Count 3.52 M/mm3 (3.65-5.03); Red Cell Distribution Width 13.9 % (13.2-15.2)
[2021-10-11 18:12] LABS: Bilirubin,Urine NEG (Negative); Blood,Urine SM (Negative); Color,Urine Yellow (Yellow); Urobilinogen,Urine < 2.0 mg/dL (<2.0)
[2021-10-11 18:16] LABS: Mucus,Urine FEW /HPF; WBC,Urine < 1.0 /HPF (0.0-6.0)
[2021-10-11 18:17] LABS: Alanine Aminotransferase 56 units/L (7-56); Albumin 4.2 g/dL (3.9-5); Blood Urea Nitrogen 8 mg/dL (9-20); Calcium 8.6 mg/dL (8.4-10.2); Hemolysis Index 0
[2021-10-11 18:23] LABS: BUN/Creatinine Ratio 11
[2021-10-11] MEDS ORDERED: SODIUM CHLORIDE 0.9% 1000 ML 1,000 ML IV ONE ×2 (18:56→20:24)
[2021-10-11] MEDS ORDERED: LORazepam 2 MG/ML VIAL IV PRN ×2 (18:58)
[2021-10-11] MEDS ORDERED: D5W 50 ML IVPB IV ONE (19:00)
--- NOTE | 2021-10-11 19:00 | Emergency Department Report ---
ED Syncope HPI - General Chief Complaint: Syncope Stated Complaint: SYNCOPAL EPISODE Time Seen by Provider: 10/11/21 18:21 - History of Present Illness Initial Comments: Patient is a 56-year-old male presenting to the emergency department with complaint of syncopal episode. Patient states that he is an alcoholic and drinks daily. Patient reports that he has been vomiting for the past 2 days. He notes that he has been unable to ambulate. He states that he has had alcohol withdrawal in the past. Patient reports that he has mid and right-sided abdominal pain. He also states that he has had some shortness of breath and c ough. He reports he has had a history of pancreatitis but states that this was years ago. He states he drinks daily, to tolerance. His last drink was this morning. He states previously when this occurred he had low blood sugar and was dehydrated. - Related Data Allergies/Adverse Reactions: Allergies hydromorphone [From Dilaudid] Allergy (Verified 11/05/20 10:06) Itching Home Medications: Ambulatory Orders Ondansetron [Zofran ODT TAB] 4 mg PO Q8HR PRN #7 tab.rapdis 02/12/20 traMADoL [Ultram 50 MG tab] 50 mg PO Q6HR PRN #10 tablet 02/12/20 Folic Acid [Folvite] 1 mg PO QDAY #30 tablet 11/06/20 Omeprazole 20 mg PO DAILY #30 tablet. 11/06/20 Ondansetron [Zofran ODT TAB] 4 mg PO Q8HR #15 tab.rapdis 11/06/20 Thiamine [Vitamin B-1] 100 mg PO QDAY #30 tablet 11/06/20 oxyCODONE [roxiCODONE] 5 mg PO Q6HR PRN #15 tablet 11/06/20 Clotrimazole 1% [Lotrimin] 1 applic TP BID #1 tube 03/14/21 ED Review of Systems ROS: Stated complaint: SYNCOPAL EPISODE Other details as noted in HPI Constitutional: denies: chills, fever Eyes: denies: eye pain, eye discharge, vision change ENT: denies: ear pain, throat pain Respiratory: cough, shortness of breath. denies: wheezing Cardiovascular: syncope. denies: chest pain, palpitations Endocrine: no symptoms reported Gastrointestinal: abdominal pain, nausea, vomiting. denies: diarrhea Genitourinary: denies: urgency, dysuria Musculoskeletal: denies: back pain, joint swelling, arthralgia Skin: denies: rash, lesions Neurological: denies: headache, weakness, paresthesias Psychiatric: denies: anxiety, depression Hematological/Lymphatic: denies: easy bleeding, easy bruising ED Past Medical Hx - Past Medical History Hx Congestive Heart Failure: No Hx Diabetes: No Hx Asthma: No Hx COPD: No Additional medical history: Pancreatitis - Surgical History Additional Surgical History: Hernia repair - Social History Smoking Status: Current Some Day Smoker - Medications Home Medications: Home Medications Medication Instructions Recorded Confirmed Last Taken Type Ondansetron [Zofran ODT TAB] 4 mg PO Q8HR PRN #7 tab.rapdis 02/12/20 Unknown Rx traMADoL [Ultram 50 MG tab] 50 mg PO Q6HR PRN #10 tablet 02/12/20 Unknown Rx Folic Acid [Folvite] 1 mg PO QDAY #30 tablet 11/06/20 Unknown Rx Omeprazole 20 mg PO DAILY #30 tablet.dr 11/06/20 Unknown Rx Ondansetron [Zofran ODT TAB] 4 mg PO Q8HR #15 tab.rapdis 11/06/20 Unknown Rx Thiamine [Vitamin B-1] 100 mg PO QDAY #30 tablet 11/06/20 Unknown Rx oxyCODONE [roxiCODONE] 5 mg PO Q6HR PRN #15 tablet 11/06/20 Unknown Rx Clotrimazole 1% [Lotrimin] 1 applic TP BID #1 tube 03/14/21 Unknown Rx ED Physical Exam - General Limitations: No Limitations General appearance: alert, in distress - Head Head exam: Present: atraumatic, normocephalic - Eye Eye exam: Present: normal appearance - ENT ENT exam: Present: mucous membranes moist - Neck Neck exam: Present: normal inspection - Respiratory Respiratory exam: Present: normal lung sounds bilaterally, respiratory distress, other (cough) - Cardiovascular Cardiovascular Exam: Present: regular rate, normal rhythm. Absent: systolic murmur, diastolic murmur, rubs, gallop - GI/Abdominal GI/Abdominal exam: Present: soft, tenderness (diffuse), normal bowel sounds - Rectal Rectal exam: Present: deferred - Extremities Exam Extremities exam: Present: normal inspection - Back Exam Back exam: Present: normal inspection - Neurological Exam Neurological exam: Present: alert, oriented X3, other (tremors noted on exam) - Psychiatric Psychiatric exam: Present: normal affect, normal mood - Skin Skin exam: Present: warm, dry, intact, normal color. Absent: rash ED Course Vital Signs 10/11/21 15:41 Temperature 97.9 F Pulse Rate 92 H Respiratory 16 Rate Blood Pressure 117/76 [Left] O2 Sat by Pulse 98 Oximetry - Reevaluation(s) Reevaluation #1: 10/11/21 21:52 Patient was noted to have low blood sugar on labs but given history of alcohol abuse thiamine was given before dextrose. Patient also has elevated anion gap metabolic acidosis likely secondary to alcoholic ketoacidosis. Plan for patient to be admitted and patient is on CIWA. I have spoken to the hospitalist was agreed to admit the patient. Patient had CT head which was grossly normal as well CT abdomen pelvis that did not demonstrate a cause of patient's abdominal pain. ED Medical Decision Making - Lab Data Result diagrams: 10/11/21 16:54 10/11/21 19:43 - EKG Data -: EKG Interpreted by Sc EKG shows normal: sinus rhythm Rate: normal - Radiology Data Radiology results: report reviewed, image reviewed - Medical Decision Making This is a 56-year-old male presenting to the emergency department with complaint of trouble with ambulation, shortness of breath, syncopal episode, vomiting. Patient reports also history of alcohol abuse and intoxication and withdrawal. Differential today for the patient includes dehydration, hypoglycemia, intracranial bleed, pancreatitis, alcohol withdrawal. Plan to obtain basic labs, CT head chest x-ray and CT abdomen pelvis, pending work-up patient likely to be admitted for further management. Critical care attestation.: If time is entered above; I have spent that time in minutes in the direct care of this critically ill patient, excluding procedure time. ED Disposition Clinical Impression: Hypoglycemia, Alcoholic ketoacidosis, Alcohol withdrawal Disposition: ADMITTED INPATIENT Is pt being admited?: Yes Does the pt Need Aspirin: No Condition: Stable
[2021-10-11] MEDS ORDERED: DEXTROSE 50% IN WATER (25GM) 50 ML SYRINGE IV ONE (19:09)
--- NOTE | 2021-10-11 19:41 | Cat Scan Report ---
CT head/brain wo con INDICATION / CLINICAL INFORMATION: 56 years Male; syncope. TECHNIQUE: Routine CT head without contrast. All CT scans at this location are performed using CT dos e reduction for ALARA by means of automated exposure control. COMPARISON: None. FINDINGS: BRAIN / INTRACRANIAL CONTENTS: No acute hemorrhage, mass effect, midline shift, hydrocephalus, or acu te, large territorial infarct. Mild to moderate, diffuse cerebral and cerebellar atrophy. There are minimal areas of decreased attenuation in the white matter of the cerebral hemispheres. The se are nonspecific findings and may be related to microangiopathy (hypertension, diabetes, atheroscle rosis), given the patient's age. It might be difficult to evaluate for small areas of ischemia withou t diffusion imaging by MRI. CRANIOCERVICAL JUNCTION: No significant abnormality. ORBITS: No significant abnormality of visualized orbits. SINUSES / MASTOIDS: Visualized paranasal sinuses and mastoid air cells are essentially clear. ADDITIONAL FINDINGS: Atherosclerotic disease is seen in the anterior and posterior circulation. IMPRESSION: 1. No focal mass, hemorrhage, hydrocephalus, or acute, large territorial infarct. Signer Name: Wili Holt MD, III Signed: 10/11/2021 7:37 PM Workstation Name: [id number]
[2021-10-11] MEDS ORDERED: THIAMINE 100 MG in SODIUM CHLORIDE 0.9% 50 ML IV ONE (20:00)
--- NOTE | 2021-10-11 20:01 | XRay Report ---
XR chest 1V ap INDICATION / CLINICAL INFORMATION: cough. COMPARISON: None available. FINDINGS: SUPPORT DEVICES: None. HEART /PULMONARY VASCULATURE: No significant abnormality. LUNGS / PLEURA: No acute pulmonary or pleural abnormality. No pneumothorax. ADDITIONAL FINDINGS: No significant additional findings. IMPRESSION: 1. No acute findings. Signer Name: Jeremy Lehman MD Signed: 10/11/2021 7:57 PM Workstation Name: [id number]
--- NOTE | 2021-10-11 20:01 | Cat Scan Report ---
CT abdomen pelvis w con INDICATION / CLINICAL INFORMATION: RLQ abdominal ttp. TECHNIQUE: Axial CT images were obtained through the abdomen and pelvis after 100 cc of Omnipaque [address] scans at this location are performed using CT dose reduction for ALARA by means of automated exposure control. COMPARISON: CT from 11/05/2020 FINDINGS: LOWER CHEST: No significant abnormality LIVER: Enlarged steatosis. GALLBLADDER/BILIARY TREE: No significant abnormality PANCREAS: Mild prominence of the pancreatic duct, unchanged. No acute inflammation. SPLEEN: No significant abnormality ADRENALS: No significant abnormality RIGHT KIDNEY / URETER: No significant abnormality LEFT KIDNEY / URETER: No significant abnormality URINARY BLADDER: No significant abnormality REPRODUCTIVE ORGANS: No significant abnormality STOMACH / BOWEL: The stomach is largely contracted without significant wall thickening. Small bowel a nd colon demonstrate no evidence of localized bowel inflammation or obstruction. Normal appendix. LYMPH NODES: No significant adenopathy. VASCULATURE: No significant abnormality. OTHER: No free air, free fluid, or focal fluid collection is identified. SKELETAL SYSTEM: No acute osseous findings. Bilateral early femoral head osteonecrosis/AVN, unchanged . IMPRESSION: 1. No acute findings of the abdomen or pelvis. 2. No evidence of localized bowel inflammation or obstruction. Normal appendix. 3. Other stable chronic and incidental findings as above. Signer Name: Jeremy Lehman MD Signed: 10/11/2021 7:56 PM Workstation Name: [id number]
[2021-10-11] MEDS ORDERED: MORPHINE 2 MG/1 ML INJ IV PRN (22:21)
[2021-10-11] MEDS ORDERED: ALBUTEROL 2.5 MG/3 ML NEBU IH PRN (22:21)
[2021-10-11] MEDS ORDERED: MORPHINE 4 MG/1 ML INJ IV PRN (22:21)
[2021-10-11] MEDS ORDERED: ONDANSETRON 4 MG/2 ML INJ IV PRN (22:21)
--- NOTE | 2021-10-11 22:30 | History and Physical Report ---
History of Present Illness Date of examination: 10/11/21 Date of admission: 10/11/21 Chief complaint: Syncope History of present illness: 56-year-old male with past medical history of alcohol abuse, pancreatitis, tobacco abuse was brought to the emergency room because of syncopal episode. Patient states that he is an alcoholic and drinks daily. Patient reports that he has been vomiting for the past 2 days. He notes that he has been unable to ambulate. He states that he has had alcohol withdrawal in the past. Patient reports that he has mid and right-sided abdominal pain. He also states that he has had some shortness of breath and cough. He reports he has had a history of pancreatitis but states that this was years ago. He states he drinks daily, to tolerance. His last drink was this morning. He states previously when this occurred he had low blood sugar and was dehydrated. In the emergency room patient blood glucose was 50 also bicarb 13, plasma alcohol level 0.06. Still going to admit the patient we will put the patient on telemetry, we also put the patient on [facility] protocol thiamine folic acid and banana bag Past History Past Medical History: other (Pancreatitis alcohol abuse) Past Surgical History: Other (Hernia repair) Social history: smoking, alcohol abuse Family history: hypertension Medications and Allergies Allergies Allergy/AdvReac Type Severity Reaction Status Date / Time hydromorphone [From Dilaudid] Allergy Itching Verified 11/05/20 10:06 Home Medications Medication Instructions Recorded Confirmed Last Taken Type Ondansetron [Zofran ODT TAB] 4 mg PO Q8HR PRN #7 tab.iqra 02/12/20 Unknown Rx traMADoL [Ultram 50 MG tab] 50 mg PO Q6HR PRN #10 tablet 02/12/20 Unknown Rx Folic Acid [Folvite] 1 mg PO QDAY #30 tablet 11/06/20 Unknown Rx Omeprazole 20 mg PO DAILY #30 tablet. 11/06/20 Unknown Rx Ondansetron [Zofran ODT TAB] 4 mg PO Q8HR #15 tab.iqra 11/06/20 Unknown Rx Thiamine [Vitamin B-1] 100 mg PO QDAY #30 tablet 11/06/20 Unknown Rx oxyCODONE [roxiCODONE] 5 mg PO Q6HR PRN #15 tablet 11/06/20 Unknown Rx Clotrimazole 1% [Lotrimin] 1 applic TP BID #1 tube 03/14/21 Unknown Rx Active Meds: Active Medications Acetaminophen (Acetaminophen 325 Mg Tab) 650 mg PO Q4H PRN PRN Reason: Pain MILD(1-3)/Fever >100.5/GUTIERREZ Albuterol (Albuterol 2.5 Mg/3 Ml Nebu) 2.5 mg IH Q3HRT PRN PRN Reason: Shortness Of Breath Albuterol/Ipratropium (Ipratropium/Albuterol Sulfate 3 Ml Ampul.Neb) 1 ampul IH Q6HRT IRLANDA Famotidine (Famotidine 20 Mg/2 Ml Inj) 20 mg IV BID IRLANDA Folic Acid (Folic Acid 1 Mg Tab) 1 mg PO QDAY [facility] Heparin Sodium (Porcine) (Heparin 5,000 Unit/1 Ml Vial) 5,000 unit SUB-Q Q12HR [facility] Dextrose/Sodium Chloride (D5/0.45ns) 1,000 mls @ 125 mls/hr IV DIRECT IRLANDA Thiamine HCl 100 mg/ Folic Acid 1 mg/ Multivitamins/Minerals 10 ml/ Sodium Chloride 1,011.2 mls @ 250 mls/hr IV DAILY ONE Stop: 10/12/21 02:26 Lorazepam (Lorazepam 2 Mg/Ml Vial) 2 mg IV Q1H PRN PRN Reason: CIWA-Ar 8-15 Lorazepam (Lorazepam 2 Mg/Ml Vial) 4 mg IV Q1H PRN PRN Reason: CIWA-Ar 16-25 Morphine Sulfate (Morphine 2 Mg/1 Ml Inj) 2 mg IV Q4H PRN PRN Reason: Pain, Moderate (4-6) Morphine Sulfate (Morphine 4 Mg/1 Ml Inj) 4 mg IV Q4H PRN PRN Reason: Pain , Severe (7-10) Ondansetron HCl (Ondansetron 4 Mg/2 Ml Inj) 4 mg IV Q8H PRN PRN Reason: Nausea And Vomiting Sodium Chloride (Sodium Chloride 0.9% 10 Ml Flush Syringe) 10 ml IV BID [facility] Sodium Chloride (Sodium Chloride 0.9% 10 Ml Flush Syringe) 10 ml IV PRN PRN PRN Reason: LINE FLUSH Thiamine HCl (Thiamine 100 Mg Tab) 100 mg PO QDAY [facility] Review of Systems All systems: negative Cardiovascular: syncope Respiratory: cough Gastrointestinal: abdominal pain, nausea, vomiting Exam - Constitutional Vitals: Temp Pulse Resp BP Pulse Ox 97.9 F 92 H 16 117/76 98 10/11/21 15:41 10/11/21 15:41 10/11/21 15:41 10/11/21 15:41 10/11/21 15:41 General appearance: Present: no acute distress, well-nourished - EENT Eyes: Present: PERRL ENT: hearing intact, clear oral mucosa - Neck Neck: Present: supple, normal ROM - Respiratory Respiratory effort: normal Respiratory: bilateral: CTA - Cardiovascular Heart Sounds: Present: S1 & S2. Absent: rub, click - Extremities Extremities: pulses symmetrical, No edema Peripheral Pulses: within normal limits - Abdominal General gastrointestinal: Present: soft, non-tender, non-distended, normal bowel sounds Male genitourinary: Present: normal - Integumentary Integumentary: Present: clear, warm, dry - Musculoskeletal Musculoskeletal: gait normal, strength equal bilaterally - Psychiatric Psychiatric: appropriate mood/affect, intact judgment & insight - Neurologic Neurologic: CNII-XII intact, moves all extremities HEART Score - HEART Score Troponin: Troponin T < 0.010 ng/mL (0.00-0.029) 10/11/21 16:54 Results - Labs CBC & Chem 7: 10/11/21 16:54 10/11/21 19:43 Labs: Laboratory Last Values WBC 5.4 K/mm3 (4.5-11.0) 10/11/21 16:54 RBC 3.52 M/mm3 (3.65-5.03) L 10/11/21 16:54 Hgb 13.7 gm/dl (11.8-15.2) 10/11/21 16:54 Hct 40.0 % (35.5-45.6) 10/11/21 16:54 MCV 114 fl (84-94) H 10/11/21 16:54 MCH 39 pg (28-32) H 10/11/21 16:54 MCHC 34 % (32-34) 10/11/21 16:54 RDW 13.9 % (13.2-15.2) 10/11/21 16:54 Plt Count 131 K/mm3 (140-440) L 10/11/21 16:54 Lymph % (Auto) 20.2 % (13.4-35.0) 10/11/21 16:54 [place] % (Auto) 14.7 % (0.0-7.3) H 10/11/21 16:54 Eos % (Auto) 0.0 % (0.0-4.3) 10/11/21 16:54 Baso % (Auto) 0.3 % (0.0-1.8) 10/11/21 16:54 Lymph # (Auto) 1.1 K/mm3 (1.2-5.4) L 10/11/21 16:54 [place] # (Auto) 0.8 K/mm3 (0.0-0.8) 10/11/21 16:54 Eos # (Auto) 0.0 K/mm3 (0.0-0.4) 10/11/21 16:54 Baso # (Auto) 0.0 K/mm3 (0.0-0.1) 10/11/21 16:54 Seg Neutrophils % 64.8 % (40.0-70.0) 10/11/21 16:54 Seg Neutrophils # 3.5 K/mm3 (1.8-7.7) 10/11/21 16:54 Sodium 133 mmol/L (137-145) L 10/11/21 16:54 Potassium 4.9 mmol/L (3.6-5.0) 10/11/21 19:43 Chloride 92.2 mmol/L (98-107) L 10/11/21 16:54 Carbon Dioxide 13 mmol/L (22-30) L 10/11/21 16:54 Anion Gap 33 mmol/L 10/11/21 16:54 BUN 8 mg/dL (9-20) L 10/11/21 16:54 Creatinine 0.7 mg/dL (0.8-1.3) L 10/11/21 16:54 Estimated GFR > 60 ml/min 10/11/21 16:54 BUN/Creatinine Ratio 11 % 10/11/21 16:54 Glucose 50 mg/dL (75-100) L 10/11/21 16:54 Calcium 8.6 mg/dL (8.4-10.2) 10/11/21 16:54 Magnesium 2.40 mg/dL (1.7-2.3) H 10/11/21 19:43 Total Bilirubin 0.50 mg/dL (0.1-1.2) 10/11/21 16:54 AST 133 units/L (5-40) H 10/11/21 16:54 ALT 56 units/L (7-56) 10/11/21 16:54 Alkaline Phosphatase 110 units/L (35-129) 10/11/21 16:54 Troponin T < 0.010 ng/mL (0.00-0.029) 10/11/21 16:54 Total Protein 7.0 g/dL (6.3-8.2) 10/11/21 16:54 Albumin 4.2 g/dL (3.9-5) 10/11/21 16:54 Albumin/Globulin Ratio 1.5 % 10/11/21 16:54 Lipase 10 units/L (13-60) L 10/11/21 16:54 Urine Color Yellow (Yellow) 10/11/21 17:16 Urine Turbidity Clear (Clear) 10/11/21 17:16 Urine pH 5.0 (5.0-7.0) 10/11/21 17:16 Ur Specific [place] 1.015 (1.003-1.030) 10/11/21 17:16 Urine Protein 30 mg/dl mg/dL (Negative) 10/11/21 17:16 Urine Glucose (UA) Neg mg/dL (Negative) 10/11/21 17:16 Urine Ketones 80 mg/dL (Negative) 10/11/21 17:16 Urine Blood Sm (Negative) 10/11/21 17:16 Urine Nitrite Neg (Negative) 10/11/21 17:16 Urine Bilirubin Neg (Negative) 10/11/21 17:16 Urine Urobilinogen < 2.0 mg/dL (<2.0) 10/11/21 17:16 Ur Leukocyte Esterase Neg (Negative) 10/11/21 17:16 Urine WBC (Auto) < 1.0 /HPF (0.0-6.0) 10/11/21 17:16 Urine RBC (Auto) 1.0 /HPF (0.0-6.0) 10/11/21 17:16 U Epithel Cells (Auto) < 1.0 /HPF (0-13.0) 10/11/21 17:16 Urine Mucus Few /HPF 10/11/21 17:16 Plasma/Serum Alcohol 0.06 % (0-0.07) 10/11/21 19:43 - Imaging and Cardiology Chest x-ray: report reviewed CT scan - abdomen: report reviewed CT Scan - head: report reviewed Assessment and Plan VTE prophylaxis?: Chemical Plan of care discussed with patient/family: Yes - Patient Problems (1) Syncope Status: Acute Plan to address problem: Admit the patient to the medical telemetry. Syncope most likely secondary to alcohol abuse and hypoglycemia. Oxygen by nasal cannula 3 to per minute. D5 half-normal saline at the rate of 125 cc/h. We counseled the patient regarding quit drinking. We also put the patient on CIWA and banana bag thiamine and folic acid we also do echocardiogram and serial cardiac enzyme (2) Alcoholic ketoacidosis Status: Acute Plan to address problem: D5 half-normal saline at the rate of 125 cc/h. We counseled the patient regarding quit drinking. We also put the patient on CIWA and banana bag thiamine and folic acid . (3) Tobacco abuse Status: Acute Plan to address problem: We counseled the patient regarding quit smoking. We put the patient on nicotine patch (4) Hypoglycemia Status: Acute Plan to address problem: D5 half-normal saline at the rate of 125 cc/h. We will monitor the glucose daily we will put the patient on cardiac diet. (5) DVT prophylaxis Status: Acute Plan to address problem: Heparin 5000 units subcu every 12 hours for DVT prophylaxis. Pepcid 20 mg IV every 12 hours for GI prophylaxis. Patient is a full code
[2021-10-11] MEDS ORDERED: FOLIC ACID 1 MG, MULTIPLE VITAMIN INJ, ADULT 10 ML in SODIUM CHLORIDE 0.9% 1000 ML 1,00... IV ONE (23:00)
[2021-10-11] MEDS ORDERED: D5W/0.45% NACL 1,000 ML IV SCH (23:00)
[2021-10-11] MEDS ORDERED: NICOTINE 14 MG/24 HR PATCH TD ONE (23:15)
[2021-10-12 05:56] LABS: Basophils % (Auto) 0.5 % (0.0-1.8); Eosinophils % (Auto) 0.2 % (0.0-4.3); Hemoglobin 11.3 gm/dl (11.8-15.2); Lymphocytes # (Auto) 0.9 K/mm3 (1.2-5.4); Lymphocytes % (Auto) 24.6 % (13.4-35.0); Mean Corpuscular HGB Conc 35 % (32-34); Mean Corpuscular Volume 111 fl (84-94); Monocytes # (Auto) 0.5 K/mm3 (0.0-0.8); Monocytes % (Auto) 14.7 % (0.0-7.3); Platelet Count 103 K/mm3 (140-440); Red Blood Count 2.87 M/mm3 (3.65-5.03); Red Cell Distribution Width 13.4 % (13.2-15.2)
[2021-10-12 06:18] LABS: Alanine Aminotransferase 38 units/L (7-56); Albumin 3.4 g/dL (3.9-5); BUN/Creatinine Ratio 10; Blood Urea Nitrogen 6 mg/dL (9-20); Calcium 7.7 mg/dL (8.4-10.2); Hemolysis Index 3
--- NOTE | 2021-10-12 08:26 | Progress Note ---
Assessment and Plan Assessment and plan: 56-year-old male with past medical history of alcohol abuse, pancreatitis, tobacco abuse was brought to the emergency room because of syncopal episode. Patient states that he is an alcoholic and drinks daily. Patient reports that he has been vomiting for the past 2 days. He notes that he has been unable to ambulate. He states that he has had alcohol withdrawal in the past. Patient reports that he has mid and right-sided abdominal pain. He also states that he has had some shortness of breath and cough. He reports he has had a history of pancreatitis but states that this was years ago. He states he drinks daily, to tolerance. His last drink was this morning. He states previously when this occurred he had low blood sugar and was dehydrated. In the emergency room patient blood glucose was 50 also bicarb 13, plasma alcohol level 0.06. we are going to admit the patient we will put the patient on telemetry, we also put the patient on CIWA protocol thiamine folic acid and banana bag - Patient Problems (1) Syncope Current Visit: No Status: Acute Plan to address problem: Admit the patient to the medical telemetry. Syncope most likely secondary to alcohol abuse and hypoglycemia. Oxygen by nasal cannula 3 to per minute. D5 half-normal saline at the rate of 125 cc/h. We counseled the patient regarding quit drinking. We also put the patient on CIWA and banana bag thiamine and folic acid we also do echocardiogram and serial cardiac enzyme (2) Alcoholic ketoacidosis Current Visit: No Status: Inactive Plan to address problem: D5 half-normal saline at the rate of 125 cc/h. We counseled the patient regarding quit drinking. We also put the patient on CIWA and banana bag thiamine and folic acid . (3) Tobacco abuse Current Visit: No Status: Acute Plan to address problem: We counseled the patient regarding quit smoking. We put the patient on nicotine patch (4) Hypoglycemia Current Visit: No Status: Inactive Plan to address problem: D5 half-normal saline at the rate of 125 cc/h. We will monitor the glucose daily we will put the patient on cardiac diet. Consult nutritional evaluation (5) Hyperkalemia Current Visit: Yes Status: Acute Plan to address problem: Resolved. Patient potassium is 4.2. Recheck BMP in the morning (6) DVT prophylaxis Current Visit: No Status: Acute Plan to address problem: Heparin 5000 units subcu every 12 hours for DVT prophylaxis. Pepcid 20 mg IV every 12 hours for GI prophylaxis. Patient is a full code History Interval history: Patient is seen and examined. Lab and data reviewed. Patient is feeling better. Glucose is improved to 92 and potassium is 4.2. No other complaints Hospitalist Physical - Constitutional Vitals: Temp Pulse Resp BP Pulse Ox 97.9 F 92 H 16 117/76 98 10/11/21 15:41 10/11/21 15:41 10/11/21 15:41 10/11/21 15:41 10/11/21 15:41 General appearance: Present: no acute distress, well-nourished - EENT Eyes: Present: PERRL, EOM intact, irregular pupil ENT: hearing intact, clear oral mucosa, dentition normal - Neck Neck: Present: supple, normal ROM - Respiratory Respiratory effort: normal - Cardiovascular Rhythm: regular Heart Sounds: Present: S1 & S2 - Extremities Extremities: no ischemia, No edema, normal color Peripheral Pulses: within normal limits - Abdominal General gastrointestinal: soft, non-tender, non-distended, normal bowel sounds - Integumentary Integumentary: Present: clear, warm, dry - Psychiatric Psychiatric: appropriate mood/affect, intact judgment & insight - Neurologic Neurologic: CNII-XII intact, moves all extremities, gait normal - Allied Health Allied health notes reviewed: nursing HEART Score - HEART Score Troponin: Troponin T < 0.010 ng/mL (0.00-0.029) 10/11/21 16:54 Results - Labs CBC & Chem 7: 10/12/21 05:29 10/12/21 05:29 Labs: Laboratory Last Values WBC 3.5 K/mm3 (4.5-11.0) L 10/12/21 05:29 RBC 2.87 M/mm3 (3.65-5.03) L 10/12/21 05:29 Hgb 11.3 gm/dl (11.8-15.2) L 10/12/21 05:29 Hct 33.0 % (35.5-45.6) L D 10/12/21 05:29 MCV 111 fl (84-94) H 10/12/21 05:29 MCH 39 pg (28-32) H 10/12/21 05:29 MCHC 35 % (32-34) H 10/12/21 05:29 RDW 13.4 % (13.2-15.2) 10/12/21 05:29 Plt Count 103 K/mm3 (140-440) L 10/12/21 05:29 Lymph % (Auto) 24.6 % (13.4-35.0) 10/12/21 05:29 [place] % (Auto) 14.7 % (0.0-7.3) H 10/12/21 05:29 Eos % (Auto) 0.2 % (0.0-4.3) 10/12/21 05:29 Baso % (Auto) 0.5 % (0.0-1.8) 10/12/21 05:29 Lymph # (Auto) 0.9 K/mm3 (1.2-5.4) L 10/12/21 05:29 [place] # (Auto) 0.5 K/mm3 (0.0-0.8) 10/12/21 05:29 Eos # (Auto) 0.0 K/mm3 (0.0-0.4) 10/12/21 05:29 Baso # (Auto) 0.0 K/mm3 (0.0-0.1) 10/12/21 05:29 Seg Neutrophils % 60.0 % (40.0-70.0) 10/12/21 05:29 Seg Neutrophils # 2.1 K/mm3 (1.8-7.7) 10/12/21 05:29 Sodium 133 mmol/L (137-145) L 10/12/21 05:29 Potassium 4.2 mmol/L (3.6-5.0) 10/12/21 05:29 Chloride 99.5 mmol/L (98-107) 10/12/21 05:29 Carbon Dioxide 20 mmol/L (22-30) L D 10/12/21 05:29 Anion Gap 18 mmol/L 10/12/21 05:29 BUN 6 mg/dL (9-20) L 10/12/21 05:29 Creatinine 0.6 mg/dL (0.8-1.3) L 10/12/21 05:29 Estimated GFR > 60 ml/min 10/12/21 05:29 BUN/Creatinine Ratio 10 % 10/12/21 05:29 Glucose 92 mg/dL (75-100) 10/12/21 05:29 Calcium 7.7 mg/dL (8.4-10.2) L 10/12/21 05:29 Magnesium 2.40 mg/dL (1.7-2.3) H 10/11/21 19:43 Total Bilirubin 0.70 mg/dL (0.1-1.2) 10/12/21 05:29 AST 85 units/L (5-40) H 10/12/21 05:29 ALT 38 units/L (7-56) 10/12/21 05:29 Alkaline Phosphatase 86 units/L (35-129) 10/12/21 05:29 Troponin T < 0.010 ng/mL (0.00-0.029) 10/11/21 16:54 Total Protein 6.1 g/dL (6.3-8.2) L 10/12/21 05:29 Albumin 3.4 g/dL (3.9-5) L 10/12/21 05:29 Albumin/Globulin Ratio 1.3 % 10/12/21 05:29 Lipase 10 units/L (13-60) L 10/11/21 16:54 Urine Color Yellow (Yellow) 10/11/21 17:16 Urine Turbidity Clear (Clear) 10/11/21 17:16 Urine pH 5.0 (5.0-7.0) 10/11/21 17:16 Ur Specific [place] 1.015 (1.003-1.030) 10/11/21 17:16 Urine Protein 30 mg/dl mg/dL (Negative) 10/11/21 17:16 Urine Glucose (UA) Neg mg/dL (Negative) 10/11/21 17:16 Urine Ketones 80 mg/dL (Negative) 10/11/21 17:16 Urine Blood Sm (Negative) 10/11/21 17:16 Urine Nitrite Neg (Negative) 10/11/21 17:16 Urine Bilirubin Neg (Negative) 10/11/21 17:16 Urine Urobilinogen < 2.0 mg/dL (<2.0) 10/11/21 17:16 Ur Leukocyte Esterase Neg (Negative) 10/11/21 17:16 Urine WBC (Auto) < 1.0 /HPF (0.0-6.0) 10/11/21 17:16 Urine RBC (Auto) 1.0 /HPF (0.0-6.0) 10/11/21 17:16 U Epithel Cells (Auto) < 1.0 /HPF (0-13.0) 10/11/21 17:16 Urine Mucus Few /HPF 10/11/21 17:16 Plasma/Serum Alcohol 0.06 % (0-0.07) 10/11/21 19:43 - Imaging and Cardiology Chest x-ray: report reviewed CT Scan - head: report reviewed Active Medications - Current Medications Current Medications: Generic Name Dose Route Start Last Admin Trade Name Freq PRN Reason Stop Dose Admin Acetaminophen 650 mg 10/11/21 22:21 Acetaminophen 325 Mg Tab PO Q4H PRN Pain MILD(1-3)/Fever >100.5/GUTIERREZ Albuterol 2.5 mg 10/11/21 22:21 Albuterol 2.5 Mg/3 Ml Nebu IH Q3HRT PRN Shortness Of Breath Albuterol/Ipratropium 1 ampul 10/12/21 02:00 Ipratropium/Albuterol Sulfate 3 Ml Ampul.Neb IH Q6HRT IRLANDA Famotidine 20 mg 10/12/21 10:00 Famotidine 20 Mg/2 Ml Inj IV BID IRLANDA Heparin Sodium (Porcine) 5,000 unit 10/12/21 10:00 Heparin 5,000 Unit/1 Ml Vial SUB-Q Q12HR [facility] Dextrose/Sodium Chloride 1,000 mls @ 125 mls/hr 10/11/21 23:00 D5/0.45ns IV DIRECT [facility] Thiamine HCl 100 mg/ Folic 1,011.2 mls @ 250 mls/hr 10/12/21 20:00 Acid 1 mg/ Multivitamins/ IV Minerals 10 ml/ Sodium DAILY@2000 IRLANDA Chloride Lorazepam 2 mg 10/11/21 18:58 Lorazepam 2 Mg/Ml Vial IV Q1H PRN CIWA-Ar 8-15 Lorazepam 4 mg 10/11/21 18:58 Lorazepam 2 Mg/Ml Vial IV Q1H PRN CIWA-Ar 16-25 Morphine Sulfate 2 mg 10/11/21 22:21 Morphine 2 Mg/1 Ml Inj IV Q4H PRN Pain, Moderate (4-6) Morphine Sulfate 4 mg 10/11/21 22:21 Morphine 4 Mg/1 Ml Inj IV Q4H PRN Pain , Severe (7-10) Ondansetron HCl 4 mg 10/11/21 22:21 Ondansetron 4 Mg/2 Ml Inj IV Q8H PRN Nausea And Vomiting Sodium Chloride 10 ml 10/12/21 10:00 Sodium Chloride 0.9% 10 Ml Flush Syringe IV BID IRLANDA Sodium Chloride 10 ml 10/11/21 22:21 Sodium Chloride 0.9% 10 Ml Flush Syringe IV PRN PRN LINE FLUSH Nutrition/Malnutrition Assess - Malnutrition Assessment Minimum of two criteria: Yes - Attestation Statement I have reviewed and agreed w/ Malnutrition eval & tx plan: Yes
[2021-10-12 09:58] LABS: Basophils % (Manual) 0 % (0.0-1.8); Eosinophils % (Manual) 0 % (0.0-4.3); Total Cells Counted 100
[2021-10-12 10:00] LABS: Anisocytosis Few; Macrocytosis Few; Platelet Estimate Consistent w Auto; Poikilocytosis Few; Stomatocytes Rare; Target Cells Rare
[2021-10-12] MEDS ORDERED: THIAMINE 100 MG TAB PO SCH (10:00)
[2021-10-12] MEDS ORDERED: FOLIC ACID 1 MG TAB PO SCH (10:00)
[2021-10-12] MEDS: FAMOTIDINE 20 MG/2 ML INJ IV SCH ×2 (10:06→21:06)
[2021-10-12] MEDS: HEPARIN 5,000 UNIT/1 ML VIAL SUB-Q SCH ×2 (10:06→21:07)
[2021-10-12] MEDS: ACETAMINOPHEN 325 MG TAB PO PRN ×2 (14:53→19:16)
[2021-10-12] MEDS ORDERED: THIAMINE 100 MG, FOLIC ACID 1 MG, MULTIPLE VITAMIN INJ, ADULT 10 ML in SODIUM CHLORIDE ... IV SCH (20:00)
[2021-10-12] MEDS: guaiFENesin/CODEINE 100-10MG ORAL LIQD 5 ML PO PRN (21:05)
[2021-10-13] MEDS: guaiFENesin/CODEINE 100-10MG ORAL LIQD 5 ML PO PRN (01:07)
[2021-10-13] MEDS: IPRATROPIUM/ALBUTEROL SULFATE 3 ML AMPUL.NEB IH SCH ×2 (03:00→03:01)
[2021-10-13 04:26] VITALS: BP 131/68
--- NOTE | 2021-10-13 08:55 | Electrocardiograph Report ---
[facility] Test Date: 2021-10-11 Test Time: 21:32:45 Pat Name: HARRIS KUMAR Department: Room: A464 Gender: M Segregator: ALBIN : 1965 Requested By: SHERRY BRIZUELA Order Number: [id number] Reading MD: Triston Rosa Measurements Intervals [place] Rate: 81 P: 85 MD: 175 QRS: 81 QRSD: 88 T: 80 QT: 399 QTc: 464 Interpretive Statements Sinus rhythm No previous ECG available for comparison Electronically Signed On 10-13-2021 8:54:43 EDT by Triston Rosa
--- NOTE | 2021-10-13 18:12 | Discharge Summary ---
Providers - Providers Date of Admission: 10/11/21 22:21 Date of discharge: 10/13/21 Attending physician: ILANA LEWIS 10/12/21 08:26 Consult to Dietitian/Nutrition [CONS] Routine Physician Instructions: Reason For Exam: Reason for Consult: Malnutrition Primary care physician: DENNIS MOHAN Hospitalization Condition: Stable Disposition: 30 STILL A PATIENT Exam - Constitutional Vitals: Temp Pulse Resp BP Pulse Ox 98.8 F 76 16 131/68 98 10/13/21 03:23 10/13/21 03:23 10/13/21 03:23 10/13/21 03:23 10/13/21 12:43 Plan Follow up with: DENNIS MOHAN MD [Primary Care Provider] - 7 Days Forms: AMA Form
== END 2021-10-14 00:12 | disposition home or self-care (01) | DRG 312 ==
LOC: ED 15:19 → 4A 22:21
PROVIDERS: ADMIT Hospitalist; ATTEND Internal Medicine
DX: R55 Syncope and collapse (principal); E87.2 Acidosis; E16.2 Hypoglycemia, unspecified; F10.20 Alcohol dependence, uncomplicated; E87.5 Hyperkalemia; Z82.49 Family history of ischemic heart disease and other diseases of the circulatory system
CPT/HCPCS: 36415; 70450; 71045; 74177; 80053; 80320; 81001; 82962; 83690; 83735; 84132; 84484; 85007; 85025; 93005; 93306; 99406; G0378; J3490; J7070; C8929; G0480; J1644; J2060; J3411; J7030; Q9967